=== PATIENT | female | born 1965 | race Caucasian/White ===

== ENCOUNTER → 2016-12-24 | Outpatient (CLI) | payer BC ==
--- NOTE | 2016-12-24 08:15 | MR ---
EXAMINATION TYPE: MR brain wo con DATE OF EXAM: 12/24/2016 7:20 AM COMPARISON: NONE HISTORY: 51-year-old female with headaches, right eye mass TECHNIQUE: Multiplanar, multisequence images of the brain and brainstem were acquired without IV con trast. Diffusion weighted imaging is performed. FINDINGS: No evidence for acute infarction, hemorrhage, mass, mass effect, midline shift, herniation, effacemen t of basal cisterns, or extra-axial fluid collection. The ventricles and sulci are age-appropriate. Major intracranial flow voids are intact. T2/FLAIR weighted sequences show no white matter signal abnormality. Midline structures demonstrate normal morphology. The craniocervical junction is normal. Mild mucosal thickening ethmoid air cells and maxillary sinuses. Globes are intact. The bilateral lac rimal glands are visualized. IMPRESSION: No intracranial abnormality seen. There is mild chronic maxillary and ethmoid sinus disease.
== END ==
LOC: RADMRIMAIN 06:36
PROVIDERS: ATTEND Family Medicine
DX: J32.8 Other chronic sinusitis (principal)
CPT/HCPCS: 70551

== ENCOUNTER 2017-01-31 08:11 | Day surgery (SDC) | payer BC ==
[~2017-01-31 08:11] MED LIST: ACETAMINOPHEN TAB 500 MG TAB PO ONE; CLINDAMYCIN 600 MG in DEXTROSE 5% IN WATER 50 ML IVPB ONE; DEXAMETHASONE SOD PHOSPHATE 10 MG/ML 1 ML VIAL IV ONE; DEXAMETHASONE SOD PHOSPHATE 4 MG/ML 1 ML VIAL IV ONE; FAMOTIDINE 20 MG/2 ML VIAL IV ONE; HYDROmorphone 1 MG/ML 1 ML SYRINGE IVP PRN; LACTATED RINGERS 1,000 ML IV SCH; MIDAZOLAM 2 MG/2 ML VIAL IV PRN; ONDANSETRON 4 MG/2 ML VIAL IVP ONE
[2017-01-31] MEDS: OXYMETAZOLINE 0.05% NASL SPRAY 15 ML NASAL ONE ×5 (08:40→09:08)
[2017-01-31] MEDS ORDERED: LIDOCAINE 1% 20 ML VIAL (10MG/ML) FOR IV START INTRADERMA ONE (08:55)
[2017-01-31 09:13] LABS: Glucose,Whole Blood 129 mg/dL (75-99)
[2017-01-31] MEDS ORDERED: SCOPOLAMINE 1.5MG/72HR PATCH TRANSDERM ONE (09:13)
[2017-01-31] MEDS ORDERED: SUCCINYLCHOLINE CHLORIDE 100 MG/5 ML SYR IV ONE (09:58)
[2017-01-31] MEDS ORDERED: ONDANSETRON 4 MG/2 ML VIAL ONE (09:58)
[2017-01-31] MEDS ORDERED: DEXAMETHASONE SOD PHOS (MDV) 100 MG/10 ML VIAL ONE (09:58)
[2017-01-31] MEDS ORDERED: PROPOFOL 10 MG/ML 20 ML VIAL IV ONE (09:58)
[2017-01-31] MEDS ORDERED: MIDAZOLAM 2 MG/2 ML VIAL ONE (09:58)
[2017-01-31] MEDS ORDERED: fentaNYL (PF) 50 MCG/ML 2 ML AMP ONE (09:58)
[2017-01-31] MEDS ORDERED: BUPIVACAIN-EPI 0.5%-1:200,000 30 ML VIAL SQ ONE (10:26)
[2017-01-31] MEDS ORDERED: LIDOCAINE 1%-EPI 1:100,000 20 ML VIAL SUBMUCOSAL ONE (10:26)
[2017-01-31] MEDS ORDERED: EPINEPHrine 1 MG/ML 1 ML AMP IRRIGATION ONE (10:27)
[2017-01-31] MEDS ORDERED: BUPIVACAINE (PF) 0.25% 30 ML VIAL SQ ONE (10:28)
[2017-01-31] MEDS ORDERED: FLUORESCEIN STRIPS 1 MG STRIP MISCELLANE ONE (10:28)
[2017-01-31] MEDS ORDERED: SILVER NITRATE APPLICATOR 1 EACH STICK..EA. TOPICAL ONE (10:31)
[2017-01-31] MEDS ORDERED: BACITRACIN 500 UNIT/GM OINT 28.4 GM TUBE TOPICAL ONE (10:52)
[2017-01-31] MEDS ORDERED: EPINEPHrine 1 MG/ML (MDV) 30 ML VIAL IRRIGATION ONE (10:53)
[2017-01-31] MEDS ORDERED: LACTATED RINGERS 1,000 ML IV ONE (11:29)
[2017-01-31 11:40] VITALS: TEMP 97.6
--- NOTE | 2017-01-31 11:52 | P.OP ---
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 She has had recurring sinusitis spray frequently for many years she also gets headaches facial pain and pressure. She has constant discolored drainage has anosmia. Her drainage is discolored she has a chronic left nasal obstruction his sense of smell is diminished. Again she is very frequent sinus infections in addition she gets frequent strep throats 3-4 per year for many years. She has sleep apnea cannot tolerate the mask because of her nasal obstructive issues a large tonsils and adenoids. Also been having problems with recurring epistaxis on the left side. Has failed medical therapy. Operative Findings: Patient was found have a left septal deviation large obstructive inferior turbinates and rafy pus coming from the ostomy complexes bilaterally friable left anterior lip vessels were noted on the septum. Patient had large cryptic tonsils and adenoids. Description of Procedure: Preoperatively the patient had her consent reviewed. All risks, benefits, and alternative therapies were discussed and all questions were answered. The patient was informed of the procedure and a confirmatory fashion and was in agreement to proceed forward. In the operating room a timeout was performed and all issues were reviewed with the operating room staff. The patient underwent a general inhalation anesthetic and intubated by the department of anesthesia and also monitored throughout the entire case by the department of anesthesia. A functioning IV line was in place. The patient was positioned in the supine position with slight reverse Trendelenburg. Preoperatively she had Afrin nasal spray. We then injected the septum, lateral nasal wall, turbinates with lidocaine 1% with epinephrine 1 100, 000. Approximately 10 minutes were allowed wait for full vasoconstrictive effects to take place. The left anterior septum to some friability and silver nitrate cautery was utilized to cauterize this area. A caudal incision was made over the caudal portion of the left septum down to the mucoperichondrium. A mucoperichondrial flap was developed with use of tunnels inferiorly and superiorly. We identified the deviation and with use of crosshatching incisions and removal of some redundant strips of septal cartilage , the septum was placed back in the midline in excellent position relieving this patient of this deviated nasal septum. We closed the incision with a 40 rapid Vicryl and a quilting stitch was used to reapproximate the septal flap. The septum was corrected and a swing door type fashion. The septum was sutured fixated to the vomer area and groove with use of a 40 rapid Vicryl. attention was then paid to the inferior turbinates. The bilateral inferior turbinates were hypertrophic and obstructive. We entered the anterior portion of the inferior turbinates with use of a microdebrider. We remove bone and submucosal elements with use of a microdebrider bilaterally. The inferior turbinates underwent a submucosal resection with removal of submucosal tissue and bone. We obtained a much better and normal in size for breathing. The inferior turbinates were then outfractured and compressed with a Dealstruck nasal elevator. Excellent airway was obtained and was symmetric bilaterally. No bleeding was encountered. Attention was then paid to the middle turbinates which were brought medial. The uncinate process was visualized and reflected forward with a Che probe. With the use of an endoscope utilizing 0 30 and 90 we perform this procedure and utilize this endoscope on a video camera throughout the entire procedure. This was with use of a Delgado sunshine scope. We then took down the uncinate process with a pediatric backbiter and a microdebrider. After the uncinate process was removed the maxillary sinuses were opened widely with use of a straight boss. We open the maxillary sinuses widely and into the maxillary sinuses with endoscopic visualization. Diseased tissue was removed from the maxillary sinuses bilaterally and the sinuses were opened bilaterally. After the maxillary sinuses were opened and diseased tissue was removed attention was then paid to the ethmoid bulla. From a medial to lateral position we took down the ethmoid bulla. We identified the roof of the maxillary sinus and the inferior attachment of the superior turbinate and then took down the basal lamella and into the posterior ethmoid air cells. We did a total ethmoidectomy with use of an up-biting boss. Excellent results were obtained. Diseased tissue was found in the ethmoid sinuses and removed. 0 gel was inserted Excellent hemostasis was obtained throughout the entire case and very low blood loss was noted. The skull base and orbital busby looked good. We reinspected the sinonasal region and no bleeding was encountered. A McIvor mouth gag was placed into the patients mouth with care to avoid any trauma to the lips, teeth, gums or tongue. Mouth was opened and tongue was depressed. The tonsils were grasped with an Allis forceps and brought medially bilaterally. A subcapsular dissection was performed utilizing an Evac-70 handpiece with an Arthrotec setting of 7. The tonsils were removed without incident bilaterally and the tonsillar fossae were inspected and bleeding was nonexistent and stopped spontaneously with Coblation. A Marcaine and lidocaine mixture was injected into the peritonsillar area for anesthesia postoperatively. After the tonsillar fossae were reinspected and no bleeding was seen attention was then paid to the nasopharynx where a red rubber catheter was placed into the nose and out the mouth and used to retract the soft palate. With use of indirect mirror examination and the Coblation hand wand, the adenoid tissue was removed in that fashion again utilizing an Evac-70 handpiece with Arthrotec setting of 7. The adenoid tissues were removed and fulgurated. The patient tolerated this procedure well. The nasopharynx shows no signs of any bleeding. McIvor mouth gag and the red rubber catheter were removed. The stomach was suctioned and the patient was taken to postanesthesia recovery in excellent condition having tolerated this procedure well. The patient will follow up in the office in one week as scheduled.
[2017-01-31] MEDS ORDERED: MEPERIDINE 50 MG/ML SYRINGE IVP ONE (11:59)
[2017-01-31] MEDS ORDERED: HYDROcodone/APAP 5-325MG 1 EACH TAB PO ONE (13:09)
[2017-01-31 13:14] VITALS: RESP 18
[2017-01-31] MEDS ORDERED: diphenhydrAMINE 50 MG/ML 1 ML VIAL IVP ONE (14:34)
[2017-01-31 16:23] VITALS: BP 122/74; PULSE 72
== END 2017-01-31 17:30 | disposition home or self-care (01) ==
LOC: OR 08:11
PROVIDERS: ATTEND Otolaryngology
DX: J34.2 Deviated nasal septum (principal); J32.0 Chronic maxillary sinusitis; J32.2 Chronic ethmoidal sinusitis; J34.3 Hypertrophy of nasal turbinates; R04.0 Epistaxis; J35.03 Chronic tonsillitis and adenoiditis; J03.90 Acute tonsillitis, unspecified; J34.89 Other specified disorders of nose and nasal sinuses; G47.33 Obstructive sleep apnea (adult) (pediatric); J45.909 Unspecified asthma, uncomplicated; G43.909 Migraine, unspecified, not intractable, without status migrainosus; J30.9 Allergic rhinitis, unspecified; J35.01 Chronic tonsillitis; M47.812 Spondylosis without myelopathy or radiculopathy, cervical region; Z79.1 Long term (current) use of non-steroidal anti-inflammatories (NSAID); Z79.891 Long term (current) use of opiate analgesic; Z79.51 Long term (current) use of inhaled steroids; Z79.52 Long term (current) use of systemic steroids; Z79.899 Other long term (current) drug therapy; Z91.09 Other allergy status, other than to drugs and biological substances; Z88.1 Allergy status to other antibiotic agents; Z88.5 Allergy status to narcotic agent; Z88.0 Allergy status to penicillin; Z88.8 Allergy status to other drugs, medicaments and biological substances; Z91.040 Latex allergy status
CPT/HCPCS: 30520; 30140; 31267; 31255; 42821; 30901; 96374; 99285; 88304; 88305; 88300; J0171; J2250; J1200; J1100 ×2; J2175; J2405; J3010; J0330; J2704; 71020; 94640

== ENCOUNTER 2017-01-31 23:42 | Emergency (ER) | payer BC ==
[2017-02-01] MEDS ORDERED: DEXAMETHASONE SOD PHOSPHATE 10 MG/ML 1 ML VIAL IV STA
--- NOTE | 2017-02-01 00:16 | ED ---
General Adult HPI - General Source: patient, RN notes reviewed Mode of arrival: wheelchair Limitations: no limitations <Low Nolen - Last Filed: 02/01/17 02:29> <Robbin Montano - Last Filed: 02/01/17 07:21> - General Chief complaint: ENT Stated complaint: Post Op-CHRISTINA Time Seen by Provider: 01/31/17 23:50 - History of Present Illness Initial comments: Patient's a 51-year-old female status post tonsillectomy times one day, who presents emergency room today with a chief complaint of difficulty breathing. She states she feels like her throat is closing on her. She states she was trying to go to bed tonight started having increased difficulty breathing. Patient does admit that she is able swallow without any difficulty. Patient does admit that she used her rescue inhaler. She currently denies any other complaints or symptoms at this time. She is able to speak in full sentences. Patient denies any recent fever, chills, chest pain, back pain, abdominal pain, nausea or vomiting, numbness or tingling, dysuria or hematuria, constipation or diarrhea, headaches or visual changes, or any other complaints. (Low Nolen) - Related Data Home Medications Medication Instructions Recorded Confirmed Montelukast [Singulair] 10 mg PO QAM 01/28/17 01/31/17 Previous Rx's Medication Instructions Recorded Hydrocodone/Acetaminophen [[place] 1 - 2 each PO Q6HR PRN #50 tab 01/31/17 5-325] Levofloxacin [Levaquin] 500 mg PO DAILY #10 tab 01/31/17 predniSONE 20 mg PO DIRECTED #15 tab 01/31/17 Lidocaine Viscous 2% [Xylocaine 15 ml MUCOUS MEM TID 5 Days 02/01/17 Viscous] Allergies Allergy/AdvReac Type Severity Reaction Status Date / Time erythromycin base Allergy Unknown Verified 01/31/17 23:46 latex Allergy Rash/Hives Verified 01/31/17 23:46 Penicillins Allergy Unknown Verified 01/31/17 23:46 tetracycline Allergy Unknown Verified 01/31/17 23:46 coconut AdvReac Nausea & Verified 01/31/17 23:46 Vomiting hydromorphone HCl AdvReac Hallucinati Verified 01/31/17 23:46 [From Dilaudid] ons iron AdvReac Unknown Verified 01/31/17 23:46 morphine AdvReac Hallucinati Verified 01/31/17 23:46 ons Review of Systems ROS Other: All systems not noted in ROS Statement are negative. <Low oNlen - Last Filed: 02/01/17 02:29> ROS Other: All systems not noted in ROS Statement are negative. <CharmaineRobbin - Last Filed: 02/01/17 07:21> ROS Statement: Those systems with pertinent positive or pertinent negative responses have been documented in the HPI. 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 Hx of and current issue with eczema. History of Any Multi-Drug Resistant Organisms: None Reported Past Surgical History: Appendectomy, Hysterectomy, Tubal Ligation Additional Past Surgical History / Comment(s): Partial Hysterectomy, Colonoscopy. Past Anesthesia/Blood Transfusion Reactions: No Reported Reaction Additional Past Anesthesia/Blood Transfusion Reaction / Comment(s): Pt states she does not need much anesthesia, she reacts to it very easily. Past Psychological History: Anxiety Smoking Status: Never smoker Past Alcohol Use History: Rare Past Drug Use History: None Reported - Past Family History Mother Additional Family Medical History / Comment(s): TB Sister(s) Family Medical History: Cancer <CallumLow - Last Filed: 02/01/17 02:29> General Exam Limitations: no limitations <Low Nolen - Last Filed: 02/01/17 02:29> <CharmaineRobbin - Last Filed: 02/01/17 07:21> - General Exam Comments Initial Comments: General: The patient is awake and alert, in no distress, and does not appear acutely ill. Eye: Pupils are equal, round and reactive to light, extra-ocular movements are intact. No nystagmus. There is normal conjunctiva bilaterally. No signs of icterus. Ears, nose, mouth and throat: There are moist mucous membranes and no oral lesions. Neck: The neck is supple, there is no tenderness or JVD. Cardiovascular: There is a regular rate and rhythm. No murmur, rub or gallop is appreciated. Respiratory: Lungs are clear to auscultation, respirations are non-labored, breath sounds are equal. No wheezes, stridor, rales, or rhonchi. Gastrointestinal: Soft, non-distended, non-tender abdomen without masses or organomegaly noted. There is no rebound or guarding present. No CVA tenderness. Bowel sounds are unremarkable. Musculoskeletal: Normal ROM, no tenderness. Strength 5/5. Sensation intact. Pulses equal bilaterally 2+. Neurological: A&O x 3. CN II-XII intact, There are no obvious motor or sensory deficits. Coordination appears grossly intact. Speech is normal. Skin: Skin is warm and dry and no rashes or lesions are noted. Psychiatric: Cooperative, appropriate mood & affect, normal judgment. (Low Nolen) Medical Decision Making <Low Nolen - Last Filed: 02/01/17 02:29> <Robbin Montano - Last Filed: 02/01/17 07:21> - Medical Decision Making X-ray reviewed and shows poor inspiratory effort. Case was discussed and seen patient at bedside Dr. Montano. Patient given viscous lidocaine and does have improvement of her symptoms. She states she feels much better at this time and feels comfortable being discharged home. She admits there was some improvement after breathing treatment but viscous lidocaine has helped her greatly. She'll be discharged home given a prescription for viscous lidocaine advised to contact Dr. Ac in the morning. Advised to return here to the emergency room for any other concerns. (Low Nolen) I saw this patient in conjunction with the physician recycling assistant. I performed independent history and physical exam. Agree with case management. (Robbin Montano) Disposition Time of Disposition: 02:30 <Low Nolen - Last Filed: 02/01/17 02:29> <Robbin Montano - Last Filed: 02/01/17 07:21> Clinical Impression: Post-tonsillectomy pain Disposition: HOME SELF-CARE Condition: Good Instructions: *Surgery [facility] - ( ENT) Tonsillectomy/Adenoidectomy Post-Op Instructions Additional Instructions: Please follow-up with Dr. Ac in the morning as discussed. Please return here to the emergency room if any symptoms increase or worsen or for any other concerns. Prescriptions: Lidocaine Viscous 2% [Xylocaine Viscous] 15 ml MUCOUS MEM TID 5 Days Referrals: Héctor Rodriguez MD [Primary Care Provider] - 1-2 days Gabino Avalos DO [Doctor of Osteopathic Medicine] - 1-2 days
[2017-02-01] MEDS ORDERED: IPRATROPIUM-ALBUTEROL 3 ML NEB INHALATION STA (00:46)
--- NOTE | 2017-02-01 01:43 | XR ---
PROCEDURE: FILM CXR 2 VIEWS HISTORY: 51-year-old female with cough. COMPARISON: Chest radiograph from abdominal series 05/19/2016 TECHNIQUE: Frontal and lateral views of the chest were obtained. FINDINGS: Stable cardiomediastinal silhouette. Low lung volumes. Increased density in the bilateral lung bases, left greater than right, may be due to pneumonia or volume loss. Bones are unremarkable for age. IMPRESSION: Increased density in the bilateral lung bases, left greater than right, may be due to pneumonia or volume loss.
[2017-02-01] MEDS ORDERED: LIDOCAINE VISCOUS 300 MG/15 ML CUP MUCOUS MEM ONE (02:03)
[2017-02-01 02:40] VITALS: BP 136/70; PULSE 82; RESP 18; TEMP 97.5
== END 2017-02-01 02:41 | disposition home or self-care (01) ==
LOC: EC 23:42
DX: R07.0 Pain in throat (principal); G89.18 Other acute postprocedural pain; J45.909 Unspecified asthma, uncomplicated; Z79.899 Other long term (current) drug therapy; Z88.0 Allergy status to penicillin; Z88.1 Allergy status to other antibiotic agents; Z88.5 Allergy status to narcotic agent; Z88.8 Allergy status to other drugs, medicaments and biological substances; Z91.040 Latex allergy status; Z91.018 Allergy to other foods; Z90.89 Acquired absence of other organs; Y83.6 Removal of other organ (partial) (total) as the cause of abnormal reaction of the patient, or of later complication, without mention of misadventure at the time of the procedure
CPT/HCPCS: 94640; 71020; 99285; 96374; J1100

== ENCOUNTER 2017-02-01 21:32 | Observation (INO) | payer BC ==
[2017-02-01] MEDS ORDERED: ALBUTEROL NEBULIZED 2.5 MG/3 ML INHALATION STA (21:46)
[2017-02-01] MEDS ORDERED: LIDOCAINE VISCOUS 2% 15 ML CUP MUCOUS MEM STA (21:46)
--- NOTE | 2017-02-01 21:59 | ED ---
SOB HPI - General Chief Complaint: Shortness of Breath Stated Complaint: SOB Time Seen by Provider: 02/01/17 21:46 Source: family Mode of arrival: ambulatory Limitations: no limitations - History of Present Illness Initial Comments: This patient is a 51-year-old woman who had recent tonsillectomy and nasal septum surgery with Dr. Ac. She presents tonight with the acute onset about 20-25 minutes ago of some pharyngeal pain and also feeling like she couldn't breathe. The patient points to her throat area and states that she is having pain there. MD Complaint: shortness of breath Onset/Timin -: minutes(s) Consistency: constant Improves With: nothing - Related Data Home Medications Medication Instructions Recorded Confirmed Montelukast [Singulair] 10 mg PO QAM 01/28/17 02/02/17 Acetaminophen-Codeine 300-30mg 1 tab PO Q6H PRN 02/01/17 02/02/17 [Tylenol #3] Hydrocodone/Acetaminophen [[place] 1 - 2 tab PO Q6HR PRN 02/01/17 02/02/17 5-325] predniSONE See Taper PO DAILY 02/01/17 02/02/17 Previous Rx's Medication Instructions Recorded Levofloxacin [Levaquin] 500 mg PO DAILY #10 tab 01/31/17 Lidocaine Viscous 2% [Xylocaine 15 ml MUCOUS MEM TID 5 Days 02/01/17 Viscous] Allergies Allergy/AdvReac Type Severity Reaction Status Date / Time erythromycin base Allergy Unknown Verified 02/02/17 03:18 latex Allergy Rash/Hives Verified 02/02/17 03:18 Penicillins Allergy Unknown Verified 02/02/17 03:18 tetracycline Allergy Unknown Verified 02/02/17 03:18 coconut AdvReac Nausea & Verified 02/02/17 03:18 Vomiting hydromorphone HCl AdvReac Hallucinati Verified 02/02/17 03:18 [From Dilaudid] ons iron AdvReac Unknown Verified 02/02/17 03:18 morphine AdvReac Hallucinati Verified 02/02/17 03:18 ons Review of Systems ROS Statement: Those systems with pertinent positive or pertinent negative responses have been documented in the HPI. ROS Other: All systems not noted in ROS Statement are negative. Constitutional: Denies: fever, chills ENT: Reports: throat pain Respiratory: Reports: dyspnea, stridor. 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 Hx of and current issue with eczema. History of Any Multi-Drug Resistant Organisms: None Reported Past Surgical History: Adenoidectomy, Appendectomy, Hysterectomy, Tonsillectomy , Tubal Ligation Additional Past Surgical History / Comment(s): Partial Hysterectomy, Colonoscopy , polyps removed. Past Anesthesia/Blood Transfusion Reactions: No Reported Reaction Additional Past Anesthesia/Blood Transfusion Reaction / Comment(s): Pt states she does not need much anesthesia, she reacts to it very easily. Past Psychological History: Anxiety Smoking Status: Never smoker Past Alcohol Use History: Rare Past Drug Use History: None Reported - Past Family History Mother Additional Family Medical History / Comment(s): TB Sister(s) Family Medical History: Cancer General Exam Limitations: no limitations General appearance: alert, in no apparent distress Head exam: Present: atraumatic, normocephalic Eye exam: Present: normal appearance. Absent: scleral icterus, conjunctival injection ENT exam: Present: other (There is granulation tissue with normal postoperative appearance post tonsillectomy. The uvula is midline without significant edema.) Neck exam: Present: normal inspection, full ROM Respiratory exam: Present: stridor, other. Absent: respiratory distress, wheezes, rales, rhonchi Cardiovascular Exam: Present: regular rate, normal rhythm, normal heart sounds. Absent: systolic murmur, diastolic murmur, rubs, gallop GI/Abdominal exam: Present: soft. Absent: distended, tenderness, guarding, rebound, mass Neurological exam: Present: alert Skin exam: Present: warm, dry, intact, normal color. Absent: rash Course Vital Signs 02/01/17 02/01/17 02/01/17 21:38 21:50 21:58 Temperature 98.7 F Pulse Rate 100 100 Respiratory 24 24 Rate Blood Pressure 150/87 O2 Sat by Pulse 93 L Oximetry 02/01/17 02/01/17 02/02/17 22:09 22:10 00:17 Temperature Pulse Rate 100 100 104 H Respiratory 22 24 Rate Blood Pressure 135/81 156/71 O2 Sat by Pulse 95 96 Oximetry 02/02/17 02/02/17 02/02/17 00:31 00:37 01:20 Temperature Pulse Rate 106 H 108 H 102 H Respiratory 24 Rate Blood Pressure 148/74 O2 Sat by Pulse 99 Oximetry 02/02/17 02:38 Temperature 98.0 F Pulse Rate 85 Respiratory 20 Rate Blood Pressure 141/78 O2 Sat by Pulse 96 Oximetry Medical Decision Making - Lab Data Result diagrams: 02/02/17 00:32 02/02/17 00:32 Lab Results 02/02/17 02/02/17 Range/Units 00:32 00:32 WBC 15.4 H (3.8-10.6) k/uL RBC 5.30 (3.80-5.40) m/uL Hgb 16.0 (11.4-16.0) gm/dL Hct 48.3 H (34.0-46.0) % MCV 91.1 (80.0-100.0) fL MCH 30.2 (25.0-35.0) pg MCHC 33.2 (31.0-37.0) g/dL RDW 13.4 (11.5-15.5) % Plt Count 289 (150-450) k/uL Neutrophils % 83 % Lymphocytes % 8 % Monocytes % 7 % Eosinophils % 1 % Basophils % 1 % Neutrophils # 12.8 H (1.3-7.7) k/uL Lymphocytes # 1.2 (1.0-4.8) k/uL Monocytes # 1.0 (0-1.0) k/uL Eosinophils # 0.1 (0-0.7) k/uL Basophils # 0.1 (0-0.2) k/uL Sodium 140 (137-145) mmol/L Potassium 3.6 (3.5-5.1) mmol/L Chloride 103 (98-107) mmol/L Carbon Dioxide 28 (22-30) mmol/L Anion Gap 9 mmol/L BUN 20 H (7-17) mg/dL Creatinine 0.80 (0.52-1.04) mg/dL Est GFR (MDRD) Af Amer >60 (>60 ml/min/1.73 sqM) Est GFR (MDRD) Non-Af >60 (>60 ml/min/1.73 sqM) Glucose 121 H (74-99) mg/dL Calcium 9.4 (8.4-10.2) mg/dL Disposition Clinical Impression: Post-tonsillectomy pain Disposition: ADMITTED IP TO THIS HOSP Condition: Fair
--- NOTE | 2017-02-01 22:52 | XR ---
EXAM: XR Soft Tissue Neck. CLINICAL HISTORY: Reason: Pain TECHNIQUE: Frontal and lateral views of the soft tissues of the neck. COMPARISON: No relevant prior studies available. FINDINGS: There is mild prevertebral soft tissue thickening, up to 7 mm at the C2 level. Cannot exclude retropharyngeal fluid/abscess. No epiglottic swelling. No radiopaque foreign body. Disc degeneration at lower cervical levels. IMPRESSION: Mild prevertebral soft tissue thickening. Cannot exclude small amount of retropharyngeal fluid. No epiglottic swelling.
[2017-02-02] MEDS ORDERED: ALBUTEROL NEBULIZED 2.5 MG/3 ML INHALATION STA (00:13)
[2017-02-02] MEDS ORDERED: LIDOCAINE VISCOUS 300 MG/15 ML CUP MUCOUS MEM STA (00:13)
[2017-02-02] MEDS ORDERED: methylPREDNISolone SOD SUCCI 125 MG/2 ML VIAL IV STA (00:15)
[2017-02-02] MEDS ORDERED: RX INFO: IV CONTRAST WAS GIVEN 1 EACH MISC MISCELLANE PRN (00:27)
[2017-02-02 00:38] LABS: Basophils # (A) 0.1 k/uL (0-0.2); Basophils % (A) 1 %; CH 30.9; CHCM 34.1; Eosinophils # (A) 0.1 k/uL (0-0.7); Eosinophils % (A) 1 %; HCT 48.3 % (34.0-46.0); HDW 2.31; Luc # (Auto) 0.25; Luc % (Auto) 2; Lymphocytes # (A) 1.2 k/uL (1.0-4.8); Lymphocytes % (A) 8 %; MCH 30.2 pg (25.0-35.0); MCHC 33.2 g/dL (31.0-37.0); MCV 91.1 fL (80.0-100.0); Monocytes % (A) 7 %; Neutrophils # (A) 12.8 k/uL (1.3-7.7); Neutrophils % (A) 83 %; RDW 13.4 % (11.5-15.5); WBC 15.4 k/uL (3.8-10.6); WBC (Perox) 14.81
[2017-02-02 00:49] LABS: Anion Gap 9 mmol/L; Blood Urea Nitrogen 20 mg/dL (7-17); Calcium 9.4 mg/dL (8.4-10.2); Carbon Dioxide 28 mmol/L (22-30); Chloride 103 mmol/L (98-107); Glucose 121 mg/dL (74-99); Non-African American GFR(MDRD) >60 (>60 ml/min/1.73 sqM); Potassium 3.6 mmol/L (3.5-5.1); Sodium 140 mmol/L (137-145)
--- NOTE | 2017-02-02 01:48 | CT ---
EXAM: CT Neck With Intravenous Contrast CLINICAL HISTORY: Reason: Pain TECHNIQUE: Axial computed tomography images of the neck with intravenous contrast. CTDI is 26.4 mGy and DLP is 827.9 mGy-cm This CT exam was performed using one or more of the following dose reduction techniques: automated exposure control, adjustment of the mA and/or kV according to patient size, and/or use of iterative reconstruction technique. Coronal and sagittal reformatted images were created and reviewed. COMPARISON: Neck Radiograph dated 02/01/17 FINDINGS: Artifacts: Significant motion artifact. Nasopharynx: Unremarkable. Oropharynx: Unremarkable. No significant tonsillar enlargement. No peritonsillar abscess. Hypopharynx: Unremarkable. Larynx: Unremarkable. Normal epiglottis. Trachea: Unremarkable. Retropharyngeal space: The prevertebral fullness seen on radiograph appears to be correspond to prominent retropharyngeal fat. Submandibular/parotid glands: Unremarkable. Glands are normal in size. Thyroid: Unremarkable. No enlarged or calcified nodules. Bones/joints: Multilevel degenerative changes of the cervical spine with a prominent disc osteophyte complex seen at C5/C6. Soft tissues: Unremarkable. Vasculature: No acute findings. Lymph nodes: Unremarkable. No lymphadenopathy. Lung apices: Question focus of ground-glass opacity within the right lower lobe not well evaluated due to motion. IMPRESSION: Significant motion artifact. 1. The prevertebral fullness seen on radiograph appears to be correspond to prominent retropharyngeal fat. 2. Question focus of ground-glass opacity within the right lower lobe not well evaluated due to motion. 3. Multilevel degenerative changes of the cervical spine with a prominent disc osteophyte complex seen at C5/C6.
[2017-02-02] MEDS ORDERED: HYDROcodone/APAP 5-325MG 1 EACH TAB PO PRN (01:53)
[2017-02-02] MEDS ORDERED: ACETAMINOPHEN TAB 325 MG TAB PO PRN (01:53)
[2017-02-02] MEDS ORDERED: NALOXONE 0.4 MG/ML 1 ML VIAL IV PRN (01:53)
[2017-02-02] MEDS: SODIUM CHLORIDE 0.9% 1,000 ML IV SCH ×3 (02:39→20:22)
[2017-02-02] MEDS: LORazepam 2 MG/ML SYRINGE IV PRN ×3 (03:06→20:26)
[2017-02-02 04:02] VITALS: BMI 36.6
[2017-02-02] MEDS ORDERED: LEVOFLOXACIN 500MG-D5W PMX 500 MG in DEXTROSE/WATER 1 100ML.BAG IVPB SCH (09:00)
[2017-02-02] MEDS ORDERED: PANTOPRAZOLE 40 MG/10 ML VIAL IV SCH (09:00)
--- NOTE | 2017-02-02 09:26 | HP ---
DATE OF ADMISSION: 02/02/2017 REASON FOR ADMISSION: Shortness of breath. HISTORY: This is a 51-year-old white female who on 01/31/17 underwent septoplasty and inferior turbinoplasty, bilateral endoscopic sinus surgery, adenotonsillectomy by Dr. Avalos. She was doing reasonably well initially, but then last evening. She had healing of some throat swelling and felt some difficulties breathing. She came to the ER and was evaluated. Dr. Fletcher did not note any airway obstruction and noted the patient had some intermittent stridor, but nothing on a regular basis. Soft tissue x-ray showed some possible prevertebral swelling and CT scan did not show any airway compromise abscess or abnormal masses. Patient did sleep overnight. Note that she was observed sleeping when I entered the room with quiet breathing. Once she awoke she had some minimal inspiratory noise, but no actual respiratory distress. Her oxygen saturations have been good as well as the remainder of the vital signs. She does complain of a sore throat and some nasal airway obstruction both essentially as expected from her surgery site. She does feel the pain is well controlled presently. PAST MEDICAL HISTORY: Positive for acid reflux, allergies, anemia, asthma, migraine headaches, sleep apnea. PAST SURGICAL HISTORY: Appendectomy and hysterectomy. ALLERGIES: LATEX, MORPHINE AND PENICILLIN. FAMILY HISTORY: Noncontributory. SOCIAL HISTORY: Does drink alcohol on occasion. No tobacco use. MEDICATIONS: At home: 1. Singulair. 2. [place]. 3. Prednisone. 4. She is also on prophylactic antibiotics but is not sure which one. Review of systems is negative other than as above. She has had no fever or chills. PHYSICAL EXAM: Again vital signs are stable. GENERAL: This is a well-developed white female in no acute distress. She can speak with normal voice. HEENT: Head normocephalic and atraumatic. Ears bilateral canals clear. Tympanic membranes unremarkable and mobile. Nose shows minimal old blood which was suctioned. Nasal septal splints intact. No hematoma. No active bleeding or purulence. Mouth and throat show status post tonsillectomy with the usual healing exudate in the tonsillar fossa bilaterally with mild uvular edema. However, excellent oropharyngeal airway. Hypopharynx and larynx exam with a mirror exam shows no ( ) epiglottis is well visualized. Vocal cords unremarkable and mobile. Neck is supple without adenopathy or tenderness. Lungs clear to auscultation bilaterally. HEART: Regular rate and rhythm without murmur or gallop appreciated. Extremities no gross deformities. NEUROLOGIC: Grossly intact. ASSESSMENT: Postoperative pain and oropharyngeal swelling. PLAN: The patient was admitted currently on supportive medications including hydrocodone, lorazepam as needed and Protonix. We will also add IV steroids and prophylactic antibiotics. We will continue IV fluids. She is encouraged to drink oral fluids, which will help dryness in the throat. Disposition will be dependent on her progress. It does not appear to have any significant airway obstruction.
[2017-02-02] MEDS: DEXAMETHASONE SOD PHOSPHATE 4 MG/ML 1 ML VIAL IV SCH ×3 (12:21→23:09)
[2017-02-03] MEDS: SODIUM CHLORIDE 0.9% 1,000 ML IV SCH (03:24)
[2017-02-03] MEDS: DEXAMETHASONE SOD PHOSPHATE 4 MG/ML 1 ML VIAL IV SCH (05:55)
[2017-02-03 07:59] VITALS: BP 125/83; PULSE 76; RESP 16; TEMP 96.8
--- NOTE | 2017-02-03 10:00 | DS ---
DATE OF ADMISSION: 02/02/2017 DATE OF DISCHARGE: 02/03/2017 DISCHARGE DISPOSITION: To home and improved. HISTORY: This is a 51-year-old white female who on 01/31/17 underwent septoplasty, inferior turbinoplasty, endoscopic sinus surgery and adenotonsillectomy by Dr. Avalos. She felt some swelling of the throat and therefore felt as though she was having some difficulty with breathing and came to the ER. She had soft tissue x-rays and CT scan of the neck, which ultimately did not show any particular airway compromise. The patient was not having any stridor or noisy breathing with sleeping, but then when she was awake she would have sometimes some inspiratory noise, but no actual respiratory distress and oxygen saturations were good. She was treated through her hospitalization with analgesics, anxiolytics, steroids, IV fluids and IV antibiotics and has improved quite nicely by today. She no longer has any noisy breathing and is tolerating fluids well. Her vital signs have been stable throughout. She this morning desired to go home. She has had no throat bleeding. She does have an appointment tomorrow with Dr. Avalos for nasoseptal splint removal. PAST MEDICAL HISTORY: Positive for acid reflux, allergies, anemia, asthma, migraine headaches, sleep apnea. PAST SURGICAL HISTORY: As above as well as appendectomy, hysterectomy. HOME MEDICATIONS: Singular, [place], prednisone, prophylactic antibiotic from postoperatively. PHYSICAL EXAM: Vital signs are stable and within normal limits. GENERAL: The patient is alert and awake and oriented x3. She is sitting up in bed this morning and looks quite comfortable. Voice is normal. No stridor. HEENT: Head normocephalic and atraumatic. EARS: Clear bilaterally. The nose shows nasal septal splints in place. There is some mild dried blood but splints are well visualized. No active bleeding. Mouth and throat show usual healing exudate in the tonsillar fossa and only slight uvula edema. Excellent oropharyngeal airway. NECK: Supple without adenopathy or tenderness. LUNGS: Clear to auscultation bilaterally The patient was admitted for postoperative pain, dehydration and swelling and has improved quite nicely mostly with the IV steroids. The patient will be discharged to home with continued postoperative instructions including nasal sinus surgery instructions and adenotonsillectomy instructions which she has already home. Liquid to soft diet. No crunchy foods. She does have [place], antibiotics and prednisone already at home, which she will continue. Follow-up tomorrow with Dr. Avalos as scheduled for nasoseptal splint removal. I would encourage her to be active up out of bed walking, but no strenuous activity. If she has any questions or concerns in the meantime she is to call.
== END 2017-02-03 08:58 | disposition home or self-care (01) ==
LOC: EC 21:32 → 3SUR 02-02 01:57
PROVIDERS: ADMIT Otolaryngology; ATTEND Otolaryngology
DX: E86.0 Dehydration (principal); G89.18 Other acute postprocedural pain; R06.02 Shortness of breath; K21.9 Gastro-esophageal reflux disease without esophagitis; G43.909 Migraine, unspecified, not intractable, without status migrainosus; G47.30 Sleep apnea, unspecified; J45.909 Unspecified asthma, uncomplicated; D68.9 Coagulation defect, unspecified; Z90.710 Acquired absence of both cervix and uterus; Z91.040 Latex allergy status; Z79.899 Other long term (current) drug therapy; Z88.5 Allergy status to narcotic agent; Z88.8 Allergy status to other drugs, medicaments and biological substances; Z88.0 Allergy status to penicillin; Z88.3 Allergy status to other anti-infective agents
CPT/HCPCS: 96374 ×2; 99285 ×2; 36415; 94640 ×2; 80048; 85025; 70360; 70491; G0378 ×2; J2060; J1100 ×2; J2930; J1956; Q9967; C9113; 96375; 96376

== ENCOUNTER 2019-08-06 13:38 | Emergency (ER) | payer BC ==
--- NOTE | 2019-08-06 14:05 | ED ---
General Adult HPI - General Chief complaint: Nausea/Vomiting/Diarrhea Stated complaint: NVD & dizziness Time Seen by Provider: 08/06/19 13:47 Source: patient, family Mode of arrival: ambulatory Limitations: no limitations - History of Present Illness Initial comments: Patient is a 53-year-old female with history of COPD and asthma is presenting to emergency Department with the multiple chief complaints. Patient reports she developed the sudden onset of general weakness, nausea, vomiting , cough, fever, rhinorrhea, sore throat, otalgia and headache. Patient reports uses albuterol inhaler daily however it is not improving her symptoms. Patient reports that she is wheezing and coughing with increased sputum production. Patient reports that she has been exposed to sick people. Patient denied getting the flu shot this year. Patient denies taking medication to alleviate the symptoms. - Related Data Home Medications Medication Instructions Recorded Confirmed Acetaminophen Tab [Tylenol Tab] 650 mg PO Q6H PRN 08/06/19 08/06/19 Ibuprofen [Advil] 200 mg PO Q6HR PRN 08/06/19 08/06/19 LORazepam [Ativan] 0.5 mg PO TID PRN 08/06/19 08/06/19 Mometasone/Formoterol [Dulera 200 2 puff INHALATION RT-Q6H PRN 08/06/19 08/06/19 Mcg/5 Mcg Inhaler] diphenhydrAMINE HCL [Benadryl] 25 mg PO BID PRN 08/06/19 08/06/19 Previous Rx's Medication Instructions Recorded Ondansetron Odt [Zofran Odt] 4 mg PO Q8HR PRN #10 tab 08/06/19 Oseltamivir [Tamiflu] 75 mg PO Q12HR #10 cap 08/06/19 methylPREDNISolone [Medrol Dose 4 mg PO DIRECTED #1 pack 08/06/19 Pack] Allergies Allergy/AdvReac Type Severity Reaction Status Date / Time erythromycin base Allergy Unknown Verified 08/06/19 13:55 latex Allergy Rash/Hives Verified 08/06/19 13:55 Penicillins Allergy Unknown Verified 08/06/19 13:55 tetracycline Allergy Unknown Verified 08/06/19 13:55 coconut AdvReac Nausea & Verified 08/06/19 13:55 Vomiting hydromorphone HCl AdvReac Hallucinati Verified 08/06/19 13:55 [From Dilaudid] ons iron AdvReac Unknown Verified 08/06/19 13:55 morphine AdvReac Hallucinati Verified 08/06/19 13:55 ons Review of Systems ROS Statement: Those systems with pertinent positive or pertinent negative responses have been documented in the HPI. ROS Other: All systems not noted in ROS Statement are negative. 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 Hx of and current issue with eczema. History of Any Multi-Drug Resistant Organisms: None Reported Past Surgical History: Adenoidectomy, Appendectomy, Hysterectomy, Tonsillectomy, Tubal Ligation Additional Past Surgical History / Comment(s): Partial Hysterectomy, Colonoscopy, polyps removed. Past Anesthesia/Blood Transfusion Reactions: No Reported Reaction Additional Past Anesthesia/Blood Transfusion Reaction / Comment(s): Pt states she does not need much anesthesia, she reacts to it very easily. Past Psychological History: Anxiety Smoking Status: Never smoker Past Alcohol Use History: Rare Past Drug Use History: None Reported - Past Family History Mother Additional Family Medical History / Comment(s): TB Sister(s) Family Medical History: Cancer General Exam Limitations: no limitations General appearance: alert, in no apparent distress Head exam: Present: atraumatic, normocephalic, normal inspection Eye exam: Present: normal appearance, PERRL, EOMI Pupils: Present: normal accommodation ENT exam: Present: normal exam, normal oropharynx (Clear bilateral rhinorrhea. No enlarged tonsils.), mucous membranes moist, TM's normal bilaterally, normal external ear exam Neck exam: Present: normal inspection, full ROM Respiratory exam: Present: wheezes (Bilateral) Cardiovascular Exam: Present: regular rate, normal rhythm, normal heart sounds Extremities exam: Present: normal inspection, full ROM Back exam: Present: normal inspection, full ROM Neurological exam: Present: alert, oriented X3 Psychiatric exam: Present: normal affect, normal mood Skin exam: Present: warm, intact, normal color Course Vital Signs 08/06/19 08/06/19 08/06/19 13:43 15:03 15:14 Temperature 98.1 F Pulse Rate 84 84 84 Respiratory 20 Rate Blood Pressure 155/97 O2 Sat by Pulse 94 L Oximetry 08/06/19 16:21 Temperature 98.2 F Pulse Rate 92 Respiratory 18 Rate Blood Pressure 127/87 O2 Sat by Pulse 97 Oximetry Medical Decision Making - Medical Decision Making Patient is a 53-year-old female with history of COPD and asthma is presenting to the emergency department with multiple chief complaints. Patient had developed the sudden onset of flu-type symptoms along with rhinorrhea, sore throat, nausea, headache, cough, otalgia and chills. On physical examination patient appears to be wheezing bilaterally. She was given a breathing treatment and fluids. On reevaluation patient reports her symptoms have improved all with resolution of wheezing. Patient given prednisone and Pepcid. Patient will be discharged with a Medrol Dosepak and Tamiflu. Strict return parameters were thoroughly discussed with patient was understanding and agreeable. Patient advised to drink lots of fluids and bedrest. The triage note says the patient had nausea vomiting diarrhea for 3 days, the patient reports her chief complaint was the sudden onset of flulike symptoms. Case discussed physician. - Lab Data Result diagrams: 08/06/19 14:00 08/06/19 14:00 Lab Results 08/06/19 08/06/19 08/06/19 Range/Units 14:00 14:00 14:00 WBC 4.4 (3.8-10.6) k/uL RBC 4.91 (3.80-5.40) m/uL Hgb 15.6 (11.4-16.0) gm/dL Hct 44.1 (34.0-46.0) % MCV 89.9 (80.0-100.0) fL MCH 31.7 (25.0-35.0) pg MCHC 35.3 (31.0-37.0) g/dL RDW 12.6 (11.5-15.5) % Plt Count 241 (150-450) k/uL Neutrophils % 53 % Lymphocytes % 31 % Monocytes % 8 % Eosinophils % 3 % Basophils % 1 % Neutrophils # 2.3 (1.3-7.7) k/uL Lymphocytes # 1.4 (1.0-4.8) k/uL Monocytes # 0.3 (0-1.0) k/uL Eosinophils # 0.2 (0-0.7) k/uL Basophils # 0.0 (0-0.2) k/uL Sodium 141 (137-145) mmol/L Potassium 3.8 (3.5-5.1) mmol/L Chloride 107 (98-107) mmol/L Carbon Dioxide 26 (22-30) mmol/L Anion Gap 8 mmol/L BUN 9 (7-17) mg/dL Creatinine 0.65 (0.52-1.04) mg/dL Est GFR (CKD-EPI)AfAm >90 (>60 ml/min/1.73 sqM) Est GFR (CKD-EPI)NonAf >90 (>60 ml/min/1.73 sqM) Glucose 114 H (74-99) mg/dL Calcium 9.3 (8.4-10.2) mg/dL Total Bilirubin 1.0 (0.2-1.3) mg/dL AST 39 H (14-36) U/L ALT 47 (9-52) U/L Alkaline Phosphatase 87 (38-126) U/L Total Protein 7.6 (6.3-8.2) g/dL Albumin 4.3 (3.5-5.0) g/dL Influenza Type A RNA Not Detected (Not Detectd) Influenza Type B (PCR) Not Detected (Not Detectd) Disposition Clinical Impression: Influenza Disposition: HOME SELF-CARE Condition: Stable Instructions (If sedation given, give patient instructions): Influenza Virus Vaccine (By injection) Additional Instructions: Please take prescribed medication as directed. Please follow with primary care. Please return to emergency department if symptoms worsen. Prescriptions: methylPREDNISolone [Medrol Dose Pack] 4 mg PO DIRECTED #1 pack Oseltamivir [Tamiflu] 75 mg PO Q12HR #10 cap Ondansetron Odt [Zofran Odt] 4 mg PO Q8HR PRN #10 tab PRN Reason: Nausea Is patient prescribed a controlled substance at d/c from ED?: No Referrals: Héctor Rodriguez MD [Primary Care Provider] - 1-2 days Time of Disposition: 15:47
[2019-08-06] MEDS ORDERED: SODIUM CHLORIDE 0.9% 1,000 ML IV STA (14:38)
[2019-08-06] MEDS ORDERED: IPRATROPIUM-ALBUTEROL 3 ML NEB INHALATION STA (14:38)
--- NOTE | 2019-08-06 14:56 | XR ---
EXAMINATION TYPE: XR chest 2V DATE OF EXAM: 08/06/2019 COMPARISON: 02/01/2017 HISTORY: Shortness of breath TECHNIQUE: Frontal and lateral views of the chest are obtained. FINDINGS: Scattered senescent parenchymal changes noted. No evidence for infiltrate. No evidence for atelectasis. Heart size is stable. Mediastinal structures are stable and grossly unremarkable. No evidence for hilar prominence. Degenerative changes dorsal spine. IMPRESSION: 1. No evidence for acute pulmonary disease.
[2019-08-06 14:57] LABS: ALT 47 U/L (9-52); AST 39 U/L (14-36); African American GFR (CKD) >90 (>60 ml/min/1.73 sqM); Albumin 4.3 g/dL (3.5-5.0); Alkaline Phosphatase 87 U/L (38-126); Anion Gap 8 mmol/L; Blood Urea Nitrogen 9 mg/dL (7-17); Calcium 9.3 mg/dL (8.4-10.2); Carbon Dioxide 26 mmol/L (22-30); Chloride 107 mmol/L (98-107); Glucose 114 mg/dL (74-99); Potassium 3.8 mmol/L (3.5-5.1); Sodium 141 mmol/L (137-145); Total Protein 7.6 g/dL (6.3-8.2)
[2019-08-06 15:21] LABS: Basophils % (A) 1 %; Eosinophils # (A) 0.2 k/uL (0-0.7); Eosinophils % (A) 3 %; HCT 44.1 % (34.0-46.0); HGB 15.6 gm/dL (11.4-16.0); Lymphocytes # (A) 1.4 k/uL (1.0-4.8); Lymphocytes % (A) 31 %; MCH 31.7 pg (25.0-35.0); MCHC 35.3 g/dL (31.0-37.0); MCV 89.9 fL (80.0-100.0); Mean Platelet Volume 5.4; Monocytes # (A) 0.3 k/uL (0-1.0); Monocytes % (A) 8 %; Neutrophils # (A) 2.3 k/uL (1.3-7.7); Neutrophils % (A) 53 %; Platelet Count 241 k/uL (150-450); RBC 4.91 m/uL (3.80-5.40); RDW 12.6 % (11.5-15.5); WBC 4.4 k/uL (3.8-10.6)
[2019-08-06] MEDS ORDERED: predniSONE 20 MG TAB PO STA (15:25)
[2019-08-06] MEDS ORDERED: FAMOTIDINE 20 MG TAB PO STA (15:25)
[2019-08-06 16:23] VITALS: BP 127/87; PULSE 92; RESP 18; TEMP 98.2
== END 2019-08-06 16:23 | disposition home or self-care (01) ==
LOC: EC 13:38
DX: J11.1 Influenza due to unidentified influenza virus with other respiratory manifestations (principal); R11.2 Nausea with vomiting, unspecified; R19.7 Diarrhea, unspecified; H92.09 Otalgia, unspecified ear; L30.9 Dermatitis, unspecified; J44.9 Chronic obstructive pulmonary disease, unspecified; M19.90 Unspecified osteoarthritis, unspecified site; Z88.0 Allergy status to penicillin; Z88.1 Allergy status to other antibiotic agents; Z88.5 Allergy status to narcotic agent; Z91.018 Allergy to other foods; Z91.040 Latex allergy status; Z91.048 Other nonmedicinal substance allergy status; Z79.1 Long term (current) use of non-steroidal anti-inflammatories (NSAID); Z79.51 Long term (current) use of inhaled steroids; Z87.01 Personal history of pneumonia (recurrent); Z90.89 Acquired absence of other organs; Z83.1 Family history of other infectious and parasitic diseases
CPT/HCPCS: 99284; 96360; 36415; 94640; 80053; 85025; 87502; 71046; J7512

== ENCOUNTER 2019-08-20 00:02 | Emergency (ER) | payer BC ==
[2019-08-20] MEDS ORDERED: SODIUM CHLORIDE 0.9% 1,000 ML IV STA (00:53)
[2019-08-20 01:13] LABS: Appearance,Urine Clear (Clear); Basophils # (A) 0.2 k/uL (0-0.2); Basophils % (A) 3 %; Bilirubin,Urine Negative (Negative); Blood,Urine Negative (Negative); Color,Urine Light Yellow; Eosinophils # (A) 0.3 k/uL (0-0.7); Eosinophils % (A) 3 %; Glucose,Urine (UA) Negative (Negative); HCT 44.8 % (34.0-46.0); HGB 14.9 gm/dL (11.4-16.0); Ketones,Urine Negative (Negative); Leukocyte Esterase,Urine Negative (Negative); Lymphocytes # (A) 1.1 k/uL (1.0-4.8); Lymphocytes % (A) 13 %; MCH 30.1 pg (25.0-35.0); MCHC 33.2 g/dL (31.0-37.0); MCV 90.6 fL (80.0-100.0); Mean Platelet Volume 6.1; Monocytes # (A) 0.6 k/uL (0-1.0); Monocytes % (A) 7 %; Neutrophils # (A) 6.2 k/uL (1.3-7.7); Neutrophils % (A) 72 %; Nitrite,Urine Negative (Negative); Platelet Count 211 k/uL (150-450); Protein,Urine Negative (Negative); RBC 4.94 m/uL (3.80-5.40); RDW 12.4 % (11.5-15.5); Specific Gravity,Urine 1.009 (1.001-1.035); Urobilinogen,Urine <2.0 mg/dL (<2.0); WBC 8.6 k/uL (3.8-10.6)
[2019-08-20 01:28] LABS: ALT 40 U/L (9-52); AST 23 U/L (14-36); African American GFR (CKD) >90 (>60 ml/min/1.73 sqM); Albumin 3.9 g/dL (3.5-5.0); Alkaline Phosphatase 101 U/L (38-126); Anion Gap 5 mmol/L; Blood Urea Nitrogen 11 mg/dL (7-17); Calcium 8.9 mg/dL (8.4-10.2); Carbon Dioxide 27 mmol/L (22-30); Chloride 108 mmol/L (98-107); Glucose 126 mg/dL (74-99); Potassium 3.4 mmol/L (3.5-5.1); Sodium 140 mmol/L (137-145); Total Bilirubin 0.9 mg/dL (0.2-1.3)
[2019-08-20] MEDS ORDERED: KETOROLAC 30 MG/ML 1 ML VIAL IVP STA (01:28)
[2019-08-20] MEDS ORDERED: ACETAMINOPHEN TAB 325 MG TAB PO STA (01:43)
--- NOTE | 2019-08-20 02:05 | CT ---
EXAMINATION TYPE: CT abdomen pelvis w con DATE OF EXAM: 08/20/2019 COMPARISON: 05/19/2016 HISTORY: Patient presents with LLQ pain. CT DLP: 1371.4 mGycm Automated exposure control for dose reduction was used. TECHNIQUE: Helical acquisition of images was performed from the lung bases through the pelvis. CONTRAST: Performed without Oral Contrast and with IV Contrast, patient injected with 100mL mL of Isovue 300. FINDINGS: There is some mild atelectasis at the lung bases. There is no pleural effusion. There is no pericardi al effusion. There is mild fatty infiltration of the liver. Gallbladder appears normal. Spleen appears normal. The re is small hiatal hernia. Stomach is otherwise normal. There is no pancreatic mass. There is no adrenal mass. Kidneys show satisfactory contrast opacification. There is no hydronephrosi s. There is 1 cm cortical cyst lateral left kidney. There is no retroperitoneal adenopathy. There is no hydronephrosis. Ureters are not dilated. Bladder distends smoothly. There is no inguinal hernia. There is no free fluid in the pelvis. There a re a few sigmoid diverticula. There is minimal fat stranding around the mid sigmoid colon. Appendix i s not seen. There is no sign of thickened appendix. There is no sign of a bowel obstruction. There are no dilated loops. There is no free air. There is n o ascites. Lumbar spine is intact. The bony pelvis appears intact. IMPRESSION: THERE IS EVIDENCE OF MILD FOCAL DIVERTICULITIS IN THE MID SIGMOID COLON IN DIFFERENT LOCATION THAN LA ST EXAM. PREVIOUS EXAM SHOWS INFLAMMATORY PROCESS IN THE PROXIMAL SIGMOID COLON. NO EVIDENCE OF AN AB SCESS.
[2019-08-20] MEDS ORDERED: LEVOFLOXACIN 750 MG TAB PO STA (02:27)
[2019-08-20 02:34] VITALS: BP 129/78; PULSE 92; RESP 16
--- NOTE | 2019-08-20 02:45 | ED ---
General Adult HPI - General Chief complaint: Abdominal Pain Stated complaint: Abd pain Time Seen by Provider: 08/20/19 00:53 Source: patient, RN notes reviewed, old records reviewed Mode of arrival: wheelchair Limitations: no limitations - History of Present Illness Initial comments: 53-year-old female patient past and has a significant for status post tubal ligation, appendectomy, history of diverticulitis, history of renal calculi presents to ED chief complaint of lower quadrant pain. This began approximately 10 PM. Reports nausea without emesis. Denies any other complaints. Systemic: Pt denies fatigue, fever/chills, rash. Pt denies weakness, night sweats, weight loss. Neuro: Pt denies headache, visual disturbances, syncope or pre-syncope. HEENT: Pt denies ocular discharge or irritation, otalgia, rhinorrhea, pharyngitis or notable lymphadenopathy. Cardiopulmonary: Pt denies chest pain, SOB, heart palpitations, dyspnea on exertion. Abdominal/GI: Pt denies abdominal pain, v/d. : Pt denies dysuria, burning w/ urination, frequency/urgency. Denies new onset urinary or bowel incontinence. MSK: Pt denies myalgia, loss of strength or function in extremities. Neuro: Pt denies new onset weakness, paresthesias. - Related Data Home Medications Medication Instructions Recorded Confirmed Acetaminophen Tab [Tylenol Tab] 650 mg PO Q6H PRN 08/06/19 08/06/19 Ibuprofen [Advil] 200 mg PO Q6HR PRN 08/06/19 08/06/19 LORazepam [Ativan] 0.5 mg PO TID PRN 08/06/19 08/06/19 Mometasone/Formoterol [Dulera 200 2 puff INHALATION RT-Q6H PRN 08/06/19 08/06/19 Mcg/5 Mcg Inhaler] diphenhydrAMINE HCL [Benadryl] 25 mg PO BID PRN 08/06/19 08/06/19 Previous Rx's Medication Instructions Recorded Ondansetron Odt [Zofran Odt] 4 mg PO Q8HR PRN #10 tab 08/06/19 Oseltamivir [Tamiflu] 75 mg PO Q12HR #10 cap 08/06/19 methylPREDNISolone [Medrol Dose 4 mg PO DIRECTED #1 pack 08/06/19 Pack] Levofloxacin [Levaquin] 750 mg PO DAILY 6 Days #6 tab 08/20/19 Allergies Allergy/AdvReac Type Severity Reaction Status Date / Time erythromycin base Allergy Unknown Verified 08/20/19 00:22 latex Allergy Rash/Hives Verified 08/20/19 00:22 Penicillins Allergy Unknown Verified 08/20/19 00:22 tetracycline Allergy Unknown Verified 08/20/19 00:22 coconut AdvReac Nausea & Verified 08/20/19 00:22 Vomiting hydromorphone HCl AdvReac Hallucinati Verified 08/20/19 00:22 [From Dilaudid] ons iron AdvReac Unknown Verified 08/20/19 00:22 morphine AdvReac Hallucinati Verified 08/20/19 00:22 ons Review of Systems ROS Statement: Those systems with pertinent positive or pertinent negative responses have been documented in the HPI. ROS Other: All systems not noted in ROS Statement are negative. 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 Hx of and current issue with eczema. History of Any Multi-Drug Resistant Organisms: None Reported Past Surgical History: Adenoidectomy, Appendectomy, Hysterectomy, Tonsillectomy, Tubal Ligation Additional Past Surgical History / Comment(s): Partial Hysterectomy, Colonoscopy, polyps removed. Past Anesthesia/Blood Transfusion Reactions: No Reported Reaction Additional Past Anesthesia/Blood Transfusion Reaction / Comment(s): Pt states she does not need much anesthesia, she reacts to it very easily. Past Psychological History: Anxiety Smoking Status: Never smoker Past Alcohol Use History: Rare Past Drug Use History: None Reported - Past Family History Mother Additional Family Medical History / Comment(s): TB Sister(s) Family Medical History: Cancer General Exam - General Exam Comments Initial Comments: Constitutional: NAD, AOX3, Pt has pleasant affect. HEENT: NC/AT, trachea midline, neck supple, no lymphadenopathy. Posterior pharynx non erythematous, without exudates. External ears appear normal, without discharge. Mucous membranes moist. Eyes PERRLA, EOM intact. There is no scleral icterus. No pallor noted. Cardiopulmonary: RRR, no murmurs, rubs or gallops, no JVD noted. Lungs CTAB in anterior and posterior goodson. No peripheral edema. Abdominal exam: Abdomen soft and non-distended. Abdomen mildly tender to palpation left lower quadrant, no other areas of abdominal tenderness.. Bowel sounds active in LLQ. No hepatosplenomegaly. No ecchymosis Neuro: CN II-XII grossly intact. No nuchal rigidity. No raccon eyes, no borjas sign, no hemotympanum. No cervical spinal tenderness. MSK: No posterior calf tenderness bilaterally, homans sign negative bilaterally. Posterior tibialis and radial pulse +2 bilaterally. Sensation intact in upper and lower extremities. Full active ROM in upper and lower extremities, 5/5 stregnth. Limitations: no limitations Course Vital Signs 08/20/19 08/20/19 00:19 02:33 Temperature 99.9 F H 100.8 F H Pulse Rate 116 H 92 Respiratory 18 16 Rate Blood Pressure 148/80 129/78 O2 Sat by Pulse 94 L 98 Oximetry Medical Decision Making - Medical Decision Making 53-year-old female patient presents to ED chief complaint left lower quadrant abdominal pain. Began approximately 10 PM. Patient vital signs. Mild fever, mild tachycardia. Patient administered antipyretic. Laboratory investigations non-impressive. Lactic acid within normal limits. No leukocytosis. CT and pelvis displayed uncomplicated sigmoid diverticulitis. Patient was discharged with Levaquin will have close outpatient follow-up with primary care provider. Case discussed with Dr. Vela. - Lab Data Result diagrams: 08/20/19 00:58 08/20/19 00:58 Lab Results 08/20/19 08/20/19 08/20/19 Range/Units 00:58 00:58 00:58 WBC 8.6 (3.8-10.6) k/uL RBC 4.94 (3.80-5.40) m/uL Hgb 14.9 (11.4-16.0) gm/dL Hct 44.8 (34.0-46.0) % MCV 90.6 (80.0-100.0) fL MCH 30.1 (25.0-35.0) pg MCHC 33.2 (31.0-37.0) g/dL RDW 12.4 (11.5-15.5) % Plt Count 211 (150-450) k/uL Neutrophils % 72 % Lymphocytes % 13 % Monocytes % 7 % Eosinophils % 3 % Basophils % 3 % Neutrophils # 6.2 (1.3-7.7) k/uL Lymphocytes # 1.1 (1.0-4.8) k/uL Monocytes # 0.6 (0-1.0) k/uL Eosinophils # 0.3 (0-0.7) k/uL Basophils # 0.2 (0-0.2) k/uL Sodium 140 (137-145) mmol/L Potassium 3.4 L (3.5-5.1) mmol/L Chloride 108 H (98-107) mmol/L Carbon Dioxide 27 (22-30) mmol/L Anion Gap 5 mmol/L BUN 11 (7-17) mg/dL Creatinine 0.76 (0.52-1.04) mg/dL Est GFR (CKD-EPI)AfAm >90 (>60 ml/min/1.73 sqM) Est GFR (CKD-EPI)NonAf >90 (>60 ml/min/1.73 sqM) Glucose 126 H (74-99) mg/dL Plasma Lactic Acid Rufino (0.7-2.0) mmol/L Calcium 8.9 (8.4-10.2) mg/dL Total Bilirubin 0.9 (0.2-1.3) mg/dL AST 23 (14-36) U/L ALT 40 (9-52) U/L Alkaline Phosphatase 101 (38-126) U/L Total Protein 7.0 (6.3-8.2) g/dL Albumin 3.9 (3.5-5.0) g/dL Lipase 207 (23-300) U/L Urine Color Urine Appearance (Clear) Urine pH (5.0-8.0) Ur Specific [place] (1.001-1.035) Urine Protein (Negative) Urine Glucose (UA) (Negative) Urine Ketones (Negative) Urine Blood (Negative) Urine Nitrite (Negative) Urine Bilirubin (Negative) Urine Urobilinogen (<2.0) mg/dL Ur Leukocyte Esterase (Negative) Urine HCG, Qual Not Detected (Not Detectd) 08/20/19 08/20/19 Range/Units 00:58 00:58 WBC (3.8-10.6) k/uL RBC (3.80-5.40) m/uL Hgb (11.4-16.0) gm/dL Hct (34.0-46.0) % MCV (80.0-100.0) fL MCH (25.0-35.0) pg MCHC (31.0-37.0) g/dL RDW (11.5-15.5) % Plt Count (150-450) k/uL Neutrophils % % Lymphocytes % % Monocytes % % Eosinophils % % Basophils % % Neutrophils # (1.3-7.7) k/uL Lymphocytes # (1.0-4.8) k/uL Monocytes # (0-1.0) k/uL Eosinophils # (0-0.7) k/uL Basophils # (0-0.2) k/uL Sodium (137-145) mmol/L Potassium (3.5-5.1) mmol/L Chloride (98-107) mmol/L Carbon Dioxide (22-30) mmol/L Anion Gap mmol/L BUN (7-17) mg/dL Creatinine (0.52-1.04) mg/dL Est GFR (CKD-EPI)AfAm (>60 ml/min/1.73 sqM) Est GFR (CKD-EPI)NonAf (>60 ml/min/1.73 sqM) Glucose (74-99) mg/dL Plasma Lactic Acid Rufino 1.4 (0.7-2.0) mmol/L Calcium (8.4-10.2) mg/dL Total Bilirubin (0.2-1.3) mg/dL AST (14-36) U/L ALT (9-52) U/L Alkaline Phosphatase (38-126) U/L Total Protein (6.3-8.2) g/dL Albumin (3.5-5.0) g/dL Lipase (23-300) U/L Urine Color Light Yellow Urine Appearance Clear (Clear) Urine pH 7.0 (5.0-8.0) Ur Specific [place] 1.009 (1.001-1.035) Urine Protein Negative (Negative) Urine Glucose (UA) Negative (Negative) Urine Ketones Negative (Negative) Urine Blood Negative (Negative) Urine Nitrite Negative (Negative) Urine Bilirubin Negative (Negative) Urine Urobilinogen <2.0 (<2.0) mg/dL Ur Leukocyte Esterase Negative (Negative) Urine HCG, Qual (Not Detectd) Disposition Clinical Impression: Diverticulitis Disposition: HOME SELF-CARE Condition: Stable Instructions (If sedation given, give patient instructions): Diverticulitis (ED), Diverticulitis Diet (ED) Additional Instructions: Follow-up with primary care provider tomorrow. Take antibiotics as directed. Return to ER if condition worsens. Prescriptions: Levofloxacin [Levaquin] 750 mg PO DAILY 6 Days #6 tab Is patient prescribed a controlled substance at d/c from ED?: No Referrals: Héctor Rodriguez MD [Primary Care Provider] - 1-2 days
[2019-08-20] MEDS ORDERED: ACET/COD 300 MG/30 MG STARTER PACK 6 TAB BTL PO STA (02:55)
[2019-08-20 02:59] VITALS: TEMP 98.1
== END 2019-08-20 03:04 | disposition home or self-care (01) ==
LOC: EC 00:02
DX: K57.32 Diverticulitis of large intestine without perforation or abscess without bleeding (principal); F41.9 Anxiety disorder, unspecified; R00.0 Tachycardia, unspecified; J45.909 Unspecified asthma, uncomplicated; Z79.899 Other long term (current) drug therapy; Z88.1 Allergy status to other antibiotic agents; Z91.040 Latex allergy status; Z88.0 Allergy status to penicillin; Z91.018 Allergy to other foods; Z88.5 Allergy status to narcotic agent; Z98.51 Tubal ligation status; Z90.49 Acquired absence of other specified parts of digestive tract; Z87.19 Personal history of other diseases of the digestive system; Z87.442 Personal history of urinary calculi; Z90.711 Acquired absence of uterus with remaining cervical stump
CPT/HCPCS: 36415; 80053; 83605; 83690; 85025; 81003; 81025; 74177; 99284; 96374; 96361; J1885; Q9967

== ENCOUNTER 2020-03-01 23:57 | Emergency (ER) | payer BC ==
[2020-03-02 00:02] VITALS: TEMP 98.4
[2020-03-02] MEDS ORDERED: SODIUM CHLORIDE 0.9% 1,000 ML IV STA (00:25)
[2020-03-02] MEDS ORDERED: ONDANSETRON 4 MG/2 ML VIAL IVP STA (00:25)
[2020-03-02] MEDS ORDERED: KETOROLAC 30 MG/ML 1 ML VIAL IVP STA (00:26)
[2020-03-02 00:45] LABS: Basophils % (A) 1 %; Eosinophils # (A) 0.3 k/uL (0-0.7); Eosinophils % (A) 3 %; HCT 44.4 % (34.0-46.0); HGB 14.8 gm/dL (11.4-16.0); Lymphocytes # (A) 1.5 k/uL (1.0-4.8); Lymphocytes % (A) 20 %; MCH 30.3 pg (25.0-35.0); MCHC 33.3 g/dL (31.0-37.0); MCV 91.1 fL (80.0-100.0); Mean Platelet Volume 6.9; Monocytes # (A) 0.6 k/uL (0-1.0); Monocytes % (A) 7 %; Neutrophils # (A) 5.2 k/uL (1.3-7.7); Neutrophils % (A) 67 %; Platelet Count 214 k/uL (150-450); RBC 4.87 m/uL (3.80-5.40); RDW 12.9 % (11.5-15.5); WBC 7.8 k/uL (3.8-10.6)
--- NOTE | 2020-03-02 00:53 | XR ---
EXAMINATION TYPE: XR KUB DATE OF EXAM: 03/02/2020 COMPARISON: 05/19/2016 HISTORY: Pain TECHNIQUE: 2 views supine FINDINGS: Bowel gas pattern is normal. There is no sign of intestinal obstruction or pneumoperitoneum . Fecal pattern is normal. There is no sign of a mass. There are no pathologic calcifications over th e kidneys. IMPRESSION: Nonacute abdomen. No adverse change compared to old exam.
[2020-03-02 01:00] LABS: ALT 25 U/L (4-34); AST 27 U/L (14-36); African American GFR (CKD) >90 (>60 ml/min/1.73 sqM); Albumin 3.9 g/dL (3.5-5.0); Alkaline Phosphatase 105 U/L (38-126); Amylase 55 U/L (30-110); Anion Gap 6 mmol/L; Blood Urea Nitrogen 13 mg/dL (7-17); Calcium 9.2 mg/dL (8.4-10.2); Carbon Dioxide 25 mmol/L (22-30); Chloride 106 mmol/L (98-107); Glucose 127 mg/dL (74-99); Non-African American GFR(CKD) >90 (>60 ml/min/1.73 sqM); Potassium 3.5 mmol/L (3.5-5.1); Sodium 137 mmol/L (137-145); Total Bilirubin 0.7 mg/dL (0.2-1.3); Total Protein 6.9 g/dL (6.3-8.2)
[2020-03-02 01:22] LABS: Appearance,Urine Clear (Clear); Bilirubin,Urine Negative (Negative); Blood,Urine Negative (Negative); Color,Urine Colorless; Glucose,Urine (UA) Negative (Negative); Ketones,Urine Negative (Negative); Leukocyte Esterase,Urine Negative (Negative); Nitrite,Urine Negative (Negative); Protein,Urine Negative (Negative); Specific Gravity,Urine 1.003 (1.001-1.035); Urobilinogen,Urine <2.0 mg/dL (<2.0)
--- NOTE | 2020-03-02 02:10 | CT ---
EXAMINATION TYPE: CT abdomen pelvis w con DATE OF EXAM: 03/02/2020 COMPARISON: 08/20/2019 HISTORY: LLQ abd pain CT DLP: 1512 mGycm Automated exposure control for dose reduction was used. CONTRAST: Performed with IV Contrast, patient injected with 100 mL of Isovue 300. There is mild atelectasis at the lung bases. There is no pleural effusion. There is no pericardial ef fusion. Heart size is normal. Liver shows no focal defect. Spleen and pancreas appear normal. The bile ducts are not dilated. Stoma ch is intact. Gallbladder appears normal. There is no adrenal mass. Kidneys show satisfactory contrast opacification. There is no hydronephrosi s. Ureters are not dilated. There are bilateral small renal cortical cysts that measure up to 1.5 cm. There is normal excretion on the delayed images. There is no retroperitoneal adenopathy. Bladder distends smoothly. There is no inguinal hernia. There is no free fluid in the pelvis. Appendix is not seen. There is no sign of thickened appendix. There is no mesenteric edema. There is no ascites or free air. There is no sign of a bowel obstruction. There is very minimal fat stranding around the posterior aspect of the proximal sigmoid colon with a single diverticulum. Lumbar vertebra have normal spacing and alignment. Posterior elements are intact. Bony pelvis appears intact. IMPRESSION: There is very minimal fat stranding at the posterior proximal sigmoid colon that is suggestive of min imal focal diverticulitis. No abscess. Patchy atelectasis at the lung bases.
[2020-03-02 02:21] VITALS: BP 128/81; PULSE 70; RESP 18
[2020-03-02] MEDS ORDERED: metroNIDAZOLE 500 MG TAB PO STA (02:43)
[2020-03-02] MEDS ORDERED: CIPROFLOXACIN HCL 500 MG TAB PO STA (02:43)
--- NOTE | 2020-03-02 02:51 | ED ---
Abdominal Pain HPI - General Chief Complaint: Abdominal Pain Stated Complaint: Abdominal pain Time Seen by Provider: 03/02/20 00:05 Source: patient Mode of arrival: ambulatory Limitations: no limitations - History of Present Illness Initial Comments: 54-year-old female patient presents to the emergency department today for evaluation of left lower quadrant abdominal pain. Patient states pain has been present for the last hour and a half. States it feels similar to when she had diverticulitis in the past. She denies any fever or chills. Denies any nausea, vomiting, or diarrhea. Denies any hematochezia or melena. Patient states she has also had kidney stone in the past but denies any urinary urgency, frequency, dysuria, or hematuria. States that she has had appendectomy and hysterectomy in the past. Denies any chest pain or shortness of breath. Patient denies any recent rash, cough, shortness of breath, chest pain, back pain, numbness, tingling, dizziness, weakness, headache, visual changes, or any other complaints. - Related Data Home Medications Medication Instructions Recorded Confirmed Acetaminophen Tab [Tylenol Tab] 650 mg PO Q6H PRN 08/06/19 08/06/19 Ibuprofen [Advil] 200 mg PO Q6HR PRN 08/06/19 08/06/19 LORazepam [Ativan] 0.5 mg PO TID PRN 08/06/19 08/06/19 Mometasone/Formoterol [Dulera 200 2 puff INHALATION RT-Q6H PRN 08/06/19 08/06/19 Mcg/5 Mcg Inhaler] diphenhydrAMINE HCL [Benadryl] 25 mg PO BID PRN 08/06/19 08/06/19 Previous Rx's Medication Instructions Recorded Ondansetron Odt [Zofran Odt] 4 mg PO Q8HR PRN #10 tab 08/06/19 Oseltamivir [Tamiflu] 75 mg PO Q12HR #10 cap 08/06/19 methylPREDNISolone [Medrol Dose 4 mg PO DIRECTED #1 pack 08/06/19 Pack] Levofloxacin [Levaquin] 750 mg PO DAILY 6 Days #6 tab 08/20/19 Ciprofloxacin HCl [Cipro] 500 mg PO Q12H 3 Days #20 tab 03/02/20 metroNIDAZOLE [Flagyl] 500 mg PO TID #30 tab 03/02/20 Allergies Allergy/AdvReac Type Severity Reaction Status Date / Time erythromycin base Allergy Unknown Verified 03/02/20 00:01 latex Allergy Rash/Hives Verified 03/02/20 00:01 Penicillins Allergy Unknown Verified 03/02/20 00:01 tetracycline Allergy Unknown Verified 03/02/20 00:01 coconut AdvReac Nausea & Verified 03/02/20 00:01 Vomiting hydromorphone HCl AdvReac Hallucinati Verified 03/02/20 00:01 [From Dilaudid] ons iron AdvReac Unknown Verified 03/02/20 00:01 morphine AdvReac Hallucinati Verified 03/02/20 00:01 ons Review of Systems ROS Statement: Those systems with pertinent positive or pertinent negative responses have been documented in the HPI. ROS Other: All systems not noted in ROS Statement are negative. 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 Hx of and current issue with eczema. History of Any Multi-Drug Resistant Organisms: None Reported Past Surgical History: Adenoidectomy, Appendectomy, Hysterectomy, Tonsillectomy, Tubal Ligation Additional Past Surgical History / Comment(s): Partial Hysterectomy, Colonoscopy, polyps removed. Past Anesthesia/Blood Transfusion Reactions: No Reported Reaction Additional Past Anesthesia/Blood Transfusion Reaction / Comment(s): Pt states she does not need much anesthesia, she reacts to it very easily. Past Psychological History: Anxiety Smoking Status: Never smoker Past Alcohol Use History: Rare Past Drug Use History: None Reported - Past Family History Mother Additional Family Medical History / Comment(s): TB Sister(s) Family Medical History: Cancer General Exam Limitations: no limitations General appearance: alert, in no apparent distress, other (This is a well- developed, well-nourished adult female patient in no acute distress. Vital signs upon presentation are temperature 98.4F, pulse 91, respirations 16, blood pressure 119/96, pulse ox 100% on room air.) Eye exam: Present: normal appearance, PERRL, EOMI. Absent: scleral icterus, conjunctival injection, periorbital swelling ENT exam: Present: normal exam, normal oropharynx, mucous membranes moist Respiratory exam: Present: normal lung sounds bilaterally. Absent: respiratory distress, wheezes, rales, rhonchi, stridor Cardiovascular Exam: Present: regular rate, normal rhythm, normal heart sounds. Absent: systolic murmur, diastolic murmur, rubs, gallop, clicks GI/Abdominal exam: Present: soft, tenderness (Left lower quadrant tenderness), normal bowel sounds. Absent: distended, guarding, rebound, rigid Neurological exam: Present: alert, oriented X3, CN II-XII intact Psychiatric exam: Present: normal affect, normal mood Skin exam: Present: warm, dry, intact, normal color. Absent: rash Course Vital Signs 03/01/20 03/02/20 23:58 02:21 Temperature 98.4 F Pulse Rate 91 70 Respiratory 16 18 Rate Blood Pressure 119/96 128/81 O2 Sat by Pulse 100 98 Oximetry Medical Decision Making - Medical Decision Making 54-year-old female patient presents to the emergency department today for evaluation of left lower quadrant abdominal pain. Physical examination did reveal tenderness over the left lower quadrant. She is afebrile, vital signs. Labs reviewed and revealed normal white blood cell count. CT abdomen and pelvis was obtained and did show evidence for focal diverticulitis at the proximal sigmoid colon. We'll start oral antibiotics and discharged home. She is instructed follow up with her primary care physician for recheck in 1-2 days. We did discuss abscess as a possible complication and return parameters in detail. She verbalizes understanding and agrees with this plan. - Lab Data Result diagrams: 03/02/20 00:26 03/02/20 00:26 Lab Results 03/02/20 03/02/20 03/02/20 Range/Units 00: 00:26 00:26 WBC 7.8 (3.8-10.6) k/uL RBC 4.87 (3.80-5.40) m/uL Hgb 14.8 (11.4-16.0) gm/dL Hct 44.4 (34.0-46.0) % MCV 91.1 (80.0-100.0) fL MCH 30.3 (25.0-35.0) pg MCHC 33.3 (31.0-37.0) g/dL RDW 12.9 (11.5-15.5) % Plt Count 214 (150-450) k/uL Neutrophils % 67 % Lymphocytes % 20 % Monocytes % 7 % Eosinophils % 3 % Basophils % 1 % Neutrophils # 5.2 (1.3-7.7) k/uL Lymphocytes # 1.5 (1.0-4.8) k/uL Monocytes # 0.6 (0-1.0) k/uL Eosinophils # 0.3 (0-0.7) k/uL Basophils # 0.0 (0-0.2) k/uL Sodium 137 (137-145) mmol/L Potassium 3.5 (3.5-5.1) mmol/L Chloride 106 (98-107) mmol/L Carbon Dioxide 25 (22-30) mmol/L Anion Gap 6 mmol/L BUN 13 (7-17) mg/dL Creatinine 0.55 (0.52-1.04) mg/dL Est GFR (CKD-EPI)AfAm >90 (>60 ml/min/1.73 sqM) Est GFR (CKD-EPI)NonAf >90 (>60 ml/min/1.73 sqM) Glucose 127 H (74-99) mg/dL Plasma Lactic Acid Rufino 1.9 (0.7-2.0) mmol/L Calcium 9.2 (8.4-10.2) mg/dL Total Bilirubin 0.7 (0.2-1.3) mg/dL AST 27 (14-36) U/L ALT 25 (4-34) U/L Alkaline Phosphatase 105 (38-126) U/L Total Protein 6.9 (6.3-8.2) g/dL Albumin 3.9 (3.5-5.0) g/dL Amylase 55 (30-110) U/L Lipase 169 (23-300) U/L Urine Color Urine Appearance (Clear) Urine pH (5.0-8.0) Ur Specific [place] (1.001-1.035) Urine Protein (Negative) Urine Glucose (UA) (Negative) Urine Ketones (Negative) Urine Blood (Negative) Urine Nitrite (Negative) Urine Bilirubin (Negative) Urine Urobilinogen (<2.0) mg/dL Ur Leukocyte Esterase (Negative) 03/02/20 Range/Units 01:12 WBC (3.8-10.6) k/uL RBC (3.80-5.40) m/uL Hgb (11.4-16.0) gm/dL Hct (34.0-46.0) % MCV (80.0-100.0) fL MCH (25.0-35.0) pg MCHC (31.0-37.0) g/dL RDW (11.5-15.5) % Plt Count (150-450) k/uL Neutrophils % % Lymphocytes % % Monocytes % % Eosinophils % % Basophils % % Neutrophils # (1.3-7.7) k/uL Lymphocytes # (1.0-4.8) k/uL Monocytes # (0-1.0) k/uL Eosinophils # (0-0.7) k/uL Basophils # (0-0.2) k/uL Sodium (137-145) mmol/L Potassium (3.5-5.1) mmol/L Chloride (98-107) mmol/L Carbon Dioxide (22-30) mmol/L Anion Gap mmol/L BUN (7-17) mg/dL Creatinine (0.52-1.04) mg/dL Est GFR (CKD-EPI)AfAm (>60 ml/min/1.73 sqM) Est GFR (CKD-EPI)NonAf (>60 ml/min/1.73 sqM) Glucose (74-99) mg/dL Plasma Lactic Acid Rufino (0.7-2.0) mmol/L Calcium (8.4-10.2) mg/dL Total Bilirubin (0.2-1.3) mg/dL AST (14-36) U/L ALT (4-34) U/L Alkaline Phosphatase (38-126) U/L Total Protein (6.3-8.2) g/dL Albumin (3.5-5.0) g/dL Amylase (30-110) U/L Lipase (23-300) U/L Urine Color Colorless Urine Appearance Clear (Clear) Urine pH 7.0 (5.0-8.0) Ur Specific [place] 1.003 (1.001-1.035) Urine Protein Negative (Negative) Urine Glucose (UA) Negative (Negative) Urine Ketones Negative (Negative) Urine Blood Negative (Negative) Urine Nitrite Negative (Negative) Urine Bilirubin Negative (Negative) Urine Urobilinogen <2.0 (<2.0) mg/dL Ur Leukocyte Esterase Negative (Negative) - Radiology Data Radiology results: report reviewed, image reviewed CT abdomen and pelvis is obtained. Report reviewed in its entirety. Impression by Dr. Sutton shows minimal fat stranding in the posterior proximal sigmoid colon that is suggestive of minimal focal diverticulitis. No abscess. Patchy atelectasis at the lung bases. KUB was obtained. Report was reviewed in its entirety. Impression by Dr. Sutton shows nonacute abdomen. No adverse change compared to old exam Disposition Clinical Impression: Sigmoid diverticulitis Disposition: HOME SELF-CARE Condition: Good Instructions (If sedation given, give patient instructions): Diverticulitis (ED) Additional Instructions: Complete antibiotic prescription in full. Follow up with your primary care physician for recheck in 1-2 days. Return to the emergency department for any new, worsening, or concerning symptoms. Prescriptions: Ciprofloxacin HCl [Cipro] 500 mg PO Q12H 3 Days #20 tab metroNIDAZOLE [Flagyl] 500 mg PO TID #30 tab Is patient prescribed a controlled substance at d/c from ED?: No Referrals: Héctor Rodriguez MD [Primary Care Provider] - 1-2 days Time of Disposition: 02:51
== END 2020-03-02 03:09 | disposition home or self-care (01) ==
LOC: EC 23:57
DX: K57.32 Diverticulitis of large intestine without perforation or abscess without bleeding (principal); F41.9 Anxiety disorder, unspecified; Z88.0 Allergy status to penicillin; Z88.1 Allergy status to other antibiotic agents; Z88.5 Allergy status to narcotic agent; Z91.040 Latex allergy status; Z91.018 Allergy to other foods; Z88.8 Allergy status to other drugs, medicaments and biological substances
CPT/HCPCS: 36415; 80053; 82150; 83605; 83690; 85025; 81003; 74018; 74177; 99284; 96374; 96361; J1885; Q9967

== ENCOUNTER 2020-09-27 11:24 | Inpatient (IN) | payer BC, OTHER ==
[2020-09-27] MEDS ORDERED: HEPARIN SODIUM,PORCINE 5,000 UNIT/ML 1 ML VIAL IV STA (11:28)
[2020-09-27] MEDS ORDERED: ONDANSETRON 4 MG/2 ML VIAL IVP STA ×2 (11:28→11:29)
[2020-09-27] MEDS ORDERED: NALOXONE 0.4 MG/ML 1 ML VIAL IV PRN (11:29)
[2020-09-27] MEDS: HYDROmorphone 0.5 MG/0.5 ML SYRINGE IVP STA ×2 (11:35→11:41)
--- NOTE | 2020-09-27 11:36 | ED ---
General Adult HPI - General Chief complaint: Chest Pain Stated complaint: Poss STEMI Time Seen by Provider: 09/27/20 11:28 Source: patient, EMS, RN notes reviewed, old records reviewed Mode of arrival: EMS Limitations: no limitations - History of Present Illness Initial comments: 54-year-old female with acute onset chest pain which began approximately one hour prior to arrival. Substernal, described as a pressure, elevated sitting on her chest. Associated nausea and diaphoresis. EMS was called patient was given aspirin and nitroglycerin. EMS had ST segment elevation inferiorly. She has no known history of coronary artery disease. Pain does radiate to both shoulders. - Related Data Home Medications Medication Instructions Recorded Confirmed Acetaminophen Tab [Tylenol Tab] 650 mg PO Q6H PRN 08/06/19 08/06/19 Ibuprofen [Advil] 200 mg PO Q6HR PRN 08/06/19 08/06/19 LORazepam [Ativan] 0.5 mg PO TID PRN 08/06/19 08/06/19 Mometasone/Formoterol [Dulera 200 2 puff INHALATION RT-Q6H PRN 08/06/19 08/06/19 Mcg/5 Mcg Inhaler] diphenhydrAMINE HCL [Benadryl] 25 mg PO BID PRN 08/06/19 08/06/19 Previous Rx's Medication Instructions Recorded Ondansetron Odt [Zofran Odt] 4 mg PO Q8HR PRN #10 tab 08/06/19 Oseltamivir [Tamiflu] 75 mg PO Q12HR #10 cap 08/06/19 methylPREDNISolone [Medrol Dose 4 mg PO DIRECTED #1 pack 08/06/19 Pack] Levofloxacin [Levaquin] 750 mg PO DAILY 6 Days #6 tab 08/20/19 Ciprofloxacin HCl [Cipro] 500 mg PO Q12H 3 Days #20 tab 03/02/20 metroNIDAZOLE [Flagyl] 500 mg PO TID #30 tab 03/02/20 Allergies Allergy/AdvReac Type Severity Reaction Status Date / Time erythromycin base Allergy Unknown Verified 09/27/20 11:25 latex Allergy Rash/Hives Verified 09/27/20 11:25 Penicillins Allergy Unknown Verified 09/27/20 11:25 tetracycline Allergy Unknown Verified 09/27/20 11:25 coconut AdvReac Nausea & Verified 09/27/20 11:25 Vomiting hydromorphone HCl AdvReac Hallucinati Verified 09/27/20 11:25 [From Dilaudid] ons iron AdvReac Unknown Verified 09/27/20 11:25 morphine AdvReac Hallucinati Verified 09/27/20 11:25 ons Review of Systems ROS Statement: Those systems with pertinent positive or pertinent negative responses have been documented in the HPI. ROS Other: All systems not noted in ROS Statement are negative. 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 Hx of and current issue with eczema. History of Any Multi-Drug Resistant Organisms: None Reported Past Surgical History: Adenoidectomy, Appendectomy, Hysterectomy, Tonsillectomy, Tubal Ligation Additional Past Surgical History / Comment(s): Partial Hysterectomy, Colonoscopy, polyps removed. Past Anesthesia/Blood Transfusion Reactions: No Reported Reaction Additional Past Anesthesia/Blood Transfusion Reaction / Comment(s): Pt states she does not need much anesthesia, she reacts to it very easily. Past Psychological History: Anxiety Smoking Status: Never smoker Past Alcohol Use History: Rare Past Drug Use History: None Reported - Past Family History Mother Additional Family Medical History / Comment(s): TB Sister(s) Family Medical History: Cancer General Exam Limitations: no limitations General appearance: alert, in distress Head exam: Present: atraumatic, normocephalic Eye exam: Present: normal appearance, PERRL ENT exam: Present: normal exam Neck exam: Present: normal inspection. Absent: tenderness, meningismus Respiratory exam: Present: normal lung sounds bilaterally. Absent: respiratory distress, wheezes Cardiovascular Exam: Present: regular rate, normal rhythm GI/Abdominal exam: Present: soft. Absent: distended, tenderness, guarding, rebound Extremities exam: Present: normal capillary refill, other (Bilateral DP pulses 2+). Absent: pedal edema Neurological exam: Present: alert, oriented X3, CN II-XII intact. Absent: motor sensory deficit Psychiatric exam: Present: anxious Skin exam: Present: diaphoretic, pallor Course Vital Signs 09/27/20 11:29 Temperature 97.9 F Pulse Rate 82 Respiratory 24 Rate O2 Sat by Pulse 96 Oximetry EKG Findings - EKG Comments: EKG Findings:: EKG showing sinus rhythm with PVC, concern for elevation inferiorly. Rate of 83, OK interval 178, QRS duration 84, QTC 470 aVL T-wave inversion. Boil Off Worker EKG showing increased ST segment elevation Medical Decision Making - Medical Decision Making 54-year-old female with typical chest pain concerning for ACS, EKG showing ST segment elevation in the inferior leads. Concrete Stone Finishing Supervisor was activated, patient had been given aspirin nitroglycerin by EMS. No further nitroglycerin administered in the setting of suspected inferior DC. She's given Dilaudid and heparin. Dr. Rodriguez for admission. Disposition Clinical Impression: ST elevation myocardial infarction (STEMI) Disposition: ADMITTED IP TO THIS HOSP Condition: Serious Is patient prescribed a controlled substance at d/c from ED?: No Referrals: Héctor Rodriguez MD [Primary Care Provider] - 1-2 days Time of Disposition: 11:33
--- NOTE | 2020-09-27 11:46 | XR ---
EXAMINATION TYPE: XR chest 1V portable DATE OF EXAM: 09/27/2020 COMPARISON: 08/06/2019 HISTORY: Chest pain TECHNIQUE: Single frontal view of the chest is obtained. FINDINGS: There is no focal air space opacity, pleural effusion, or pneumothorax seen. The cardiac silhouette size is within normal limits. The osseous structures are intact. AC joint arthropathy on the right. Assessment interstitium limited due to reduced inspiration. IMPRESSION: No acute process.
[2020-09-27 11:49] LABS: INR 0.9 (<1.2); Partial Thromboplastin Time 24.3 sec (22.0-30.0); Prothrombin Time 9.9 sec (9.0-12.0)
[2020-09-27] MEDS ORDERED: IV FLUID CONTINUATION 800 ML IV ONE (11:50)
[2020-09-27 11:52] LABS: ALT 42 U/L (4-34); AST 39 U/L (14-36); African American GFR (CKD) >90 (>60 ml/min/1.73 sqM); Albumin 4.1 g/dL (3.5-5.0); Alkaline Phosphatase 91 U/L (38-126); Anion Gap 8 mmol/L; Blood Urea Nitrogen 14 mg/dL (7-17); Calcium 8.8 mg/dL (8.4-10.2); Carbon Dioxide 23 mmol/L (22-30); Chloride 110 mmol/L (98-107); Glucose 144 mg/dL (74-99); Non-African American GFR(CKD) >90 (>60 ml/min/1.73 sqM); Potassium 3.7 mmol/L (3.5-5.1); Sodium 141 mmol/L (137-145); Total Bilirubin 0.9 mg/dL (0.2-1.3); Total Protein 7.3 g/dL (6.3-8.2)
[2020-09-27] MEDS ORDERED: LIDOCAINE 1% INJ 10MG/ML (20 ML MDV) ONE (11:53)
[2020-09-27] MEDS: MIDAZOLAM 2 MG/2 ML VIAL IVP ONE ×2 (11:55→12:18)
[2020-09-27] MEDS ORDERED: LIDOCAINE 1% INJ 10MG/ML (20 ML MDV) SQ ONE (11:57)
[2020-09-27] MEDS ORDERED: fentaNYL (PF) 50 MCG/ML 2 ML AMP ONE (12:02)
[2020-09-27] MEDS ORDERED: fentaNYL (PF) 50 MCG/ML 2 ML AMP IVP ONE (12:03)
[2020-09-27 12:07] LABS: Basophils % (A) 0 %; Eosinophils # (A) 0.2 k/uL (0-0.7); Eosinophils % (A) 6 %; HCT 45.9 % (34.0-46.0); HGB 15.3 gm/dL (11.4-16.0); Lymphocytes # (A) 1.6 k/uL (1.0-4.8); Lymphocytes % (A) 37 %; MCH 29.9 pg (25.0-35.0); MCHC 33.4 g/dL (31.0-37.0); MCV 89.6 fL (80.0-100.0); Mean Platelet Volume 6.8; Monocytes # (A) 0.3 k/uL (0-1.0); Monocytes % (A) 7 %; Neutrophils % (A) 47 %; Platelet Count 203 k/uL (150-450); RBC 5.13 m/uL (3.80-5.40); RDW 12.9 % (11.5-15.5); WBC 4.3 k/uL (3.8-10.6)
[2020-09-27] MEDS ORDERED: NITROGLYCERIN-D5W PMX 50 MG in DEXTROSE/WATER 1 250ML.BAG IV ONE (12:13)
[2020-09-27] MEDS ORDERED: CLOPIDOGREL 75 MG TAB ONE (12:13)
[2020-09-27] MEDS ORDERED: HEPARIN SODIUM,PORCINE 5,000 UNIT/ML 1 ML VIAL IV PRN (12:16)
[2020-09-27] MEDS ORDERED: CLOPIDOGREL 75 MG TAB PO ONE (12:18)
[2020-09-27] MEDS ORDERED: IOPAMIDOL-370 125ML BTL INJ ONE (12:20)
[2020-09-27] MEDS ORDERED: ONDANSETRON 4 MG/2 ML VIAL ONE (12:32)
[2020-09-27] MEDS ORDERED: ONDANSETRON 4 MG/2 ML VIAL IVP ONE (12:33)
[2020-09-27 12:46] LABS: Cholesterol 251 mg/dL (<200); HDL Cholesterol 43 mg/dL (40-60); LDL Cholesterol,Calculated 188 mg/dL (0-99); Triglycerides 102 mg/dL (<150)
--- NOTE | 2020-09-27 12:59 | P.CRDCN ---
History of Present Illness Consult date: 09/27/20 History of present illness: CHIEF COMPLAINT: Chest pain HISTORY OF PRESENT ILLNESS: This is a 54 year old female with a past medical history significant for asthma, GERD, osteoarthritis, sleep apnea without CPAP use, and migraines. Patient does not follow with a waistline joiner overlock. We have been asked to see the patient in consultation for STEMI. Patient presented via EMS. Patient examined at the bedside in the emergency room. Patient reports she began having chest pain about an hour prior to coming to the hospital. She describes the pain as an extreme pressure. She reports the pain went into her arm as well. She reports shortness of breath, nausea without vomiting, and also diaphoresis. DIAGNOSTICS: EKG reveals ST elevation in inferior leads Chest xray: not available at time of examination Laboratory data: WBC 4.3. Hemoglobin 15.3. Platelet count 203. Sodium 141. Potassium 3.7. BUN 14. Creatinine 0.58. Magnesium 2.0. Troponin negative 1. Current home cardiac medications include none REVIEW OF SYSTEMS: At the time of my exam: CONSTITUTIONAL: Denies fever or chills. HEENT: Denies blurred vision, vision changes, or eye pain. Denies hemoptysis CARDIOVASCULAR: Reports chest pain. Denies orthopnea, PND or palpitations RESPIRATORY: Reports shortness of breath. GASTROINTESTINAL: Denies abdominal pain. Denies nausea or vomiting. HEMATOLOGIC: Denies bleeding disorders. GENITOURINARY: Denies any blood in urine. SKIN: Denies pruitis. Denies rash. PHYSICAL EXAM: VITAL SIGNS: Reviewed. GENERAL: Well-developed in mild acute distress. HEENT: Head is normocephalic. Pupils are equal, round. Sclerae anicteric. Mucous membranes of the mouth are moist. Neck supple. No JVD or thyromegaly LUNGS: Respirations even and unlabored. Lungs essentially clear to auscultation bilaterally. HEART: Regular rate and rhythm. S1 and S2 heard. ABDOMEN: Soft. Nondistended. Nontender. EXTREMITIES: Normal range of motion. No clubbing or cyanosis. Peripheral pulses intact. No lower extremity edema NEUROLOGIC: Awake and alert. Oriented x 3. ASSESSMENT: Acute inferior ST elevated myocardial infarction Asthma GERD Sleep apnea, no CPAP use Osteoarthritis PLAN: STEMI activated and patient examined in the ER. Patient advised to undergo emergent cardiac catheterization. Patient agreeable. She was transferred to the cleaner laboratory equipment in stable condition. Nurse practitioner note has been reviewed by physician. Signing provider agrees with the documented findings, assessment, and plan of care. 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 Hx of and current issue with eczema. History of Any Multi-Drug Resistant Organisms: None Reported Past Surgical History: Adenoidectomy, Appendectomy, Hysterectomy, Tonsillectomy, Tubal Ligation Additional Past Surgical History / Comment(s): Partial Hysterectomy, Colonoscopy, polyps removed. Past Anesthesia/Blood Transfusion Reactions: No Reported Reaction Additional Past Anesthesia/Blood Transfusion Reaction / Comment(s): Pt states she does not need much anesthesia, she reacts to it very easily. Past Psychological History: Anxiety Smoking Status: Never smoker Past Alcohol Use History: Rare Past Drug Use History: None Reported - Past Family History Mother Additional Family Medical History / Comment(s): TB Sister(s) Family Medical History: Cancer Medications and Allergies Home Medications Medication Instructions Recorded Confirmed Type LORazepam [Ativan] 0.5 mg PO TID PRN 08/06/19 09/27/20 History Dicyclomine [Bentyl] 20 mg PO TID 09/27/20 09/27/20 History Allergies Allergy/AdvReac Type Severity Reaction Status Date / Time erythromycin base Allergy Unknown Verified 09/27/20 12:25 latex Allergy Rash/Hives Verified 09/27/20 12:25 Penicillins Allergy Unknown Verified 09/27/20 12:25 tetracycline Allergy Unknown Verified 09/27/20 12:25 coconut AdvReac Nausea & Verified 09/27/20 12:25 Vomiting hydromorphone HCl AdvReac Hallucinati Verified 09/27/20 12:25 [From Dilaudid] ons iron AdvReac Unknown Verified 09/27/20 12:25 morphine AdvReac Hallucinati Verified 09/27/20 12:25 ons Physical Exam Vitals: Vital Signs Temp Pulse Pulse Resp BP Pulse Ox 09/27/20 11:32 92 09/27/20 11:29 97.9 F 82 24 134/86 96 09/27/20 11:25 97.9 F 80 24 130/80 96 Intake and Output 09/26/20 09/27/20 09/27/20 22:59 06:59 14:59 Intake Total 200 Balance 200 Intake: IV 200 Other: Weight 96.162 kg Results 09/27/20 11:29 09/27/20 11:29 Cardiac Enzymes 09/27/20 09/27/20 Range/Units 11:29 11:29 AST 39 H (14-36) U/L Troponin I <0.012 (0.000-0.034) ng/mL Coagulation 09/27/20 Range/Units 11:29 PT 9.9 (9.0-12.0) sec APTT 24.3 (22.0-30.0) sec CBC 09/27/20 Range/Units 11:29 WBC 4.3 (3.8-10.6) k/uL RBC 5.13 (3.80-5.40) m/uL Hgb 15.3 (11.4-16.0) gm/dL Hct 45.9 (34.0-46.0) % Plt Count 203 (150-450) k/uL Comprehensive Metabolic Panel 09/27/20 Range/Units 11:29 Sodium 141 (137-145) mmol/L Potassium 3.7 (3.5-5.1) mmol/L Chloride 110 H (98-107) mmol/L Carbon Dioxide 23 (22-30) mmol/L BUN 14 (7-17) mg/dL Creatinine 0.58 (0.52-1.04) mg/dL Glucose 144 H (74-99) mg/dL Calcium 8.8 (8.4-10.2) mg/dL AST 39 H (14-36) U/L ALT 42 H (4-34) U/L Alkaline Phosphatase 91 (38-126) U/L Total Protein 7.3 (6.3-8.2) g/dL Albumin 4.1 (3.5-5.0) g/dL Current Medications Generic Name Dose Route Start Last Admin Trade Name Freq PRN Reason Stop Dose Admin Aspirin 81 mg 09/28/20 09:00 Aspirin 81 Mg PO DAILY [facility] Atorvastatin Calcium 80 mg 09/27/20 21:00 Atorvastatin 80 Mg Tab PO HS [facility] Clopidogrel Bisulfate 75 mg 09/28/20 09:00 Clopidogrel 75 Mg Tab PO DAILY [facility] Heparin Sodium (Porcine) 0 unit 09/27/20 12:16 Heparin Sodium,Porcine 5,000 Unit/Ml 1 Ml Vial IV PER PROTOCOL PRN Low PTT Protocol Nitroglycerin/Dextrose 50 mg/ 250 mls @ 6 mls/hr 09/27/20 12:30 IV Solution IV .Q24H [facility] Protocol 20 MCG/MIN Heparin Sodium/Sodium Chloride 250 mls @ 10 mls/hr 09/27/20 14:30 25,000 unit/ Sodium Chloride IV .Q24H [facility] Protocol 10.399 UNITS/KG/HR Metoprolol Succinate 25 mg 09/27/20 12:15 Metoprolol Succinate (Er) 25 Mg Tab.Er.24h PO DAILY [facility] Naloxone HCl 0.2 mg 09/27/20 11:29 Naloxone 0.4 Mg/Ml 1 Ml Vial IV Q2M PRN Opioid Reversal Intake and Output 09/26/20 09/27/20 09/27/20 22:59 06:59 14:59 Intake Total 200 Balance 200 Intake: IV 200 Other: Weight 96.162 kg Patient Weight 09/28/20 06:59 Weight 96.162 kg 09/27/20 11:29 09/27/20 11:29
[2020-09-27 15:36] LABS: Glucose,Whole Blood 129 mg/dL (75-99)
[2020-09-27] MEDS: HEPARIN SOD,PORK IN 0.45% NACL 25,000 UNIT in 0.45% NACL 1 250ML.BAG IV SCH (15:54)
[2020-09-27] MEDS: NITROGLYCERIN-D5W PMX 50 MG in DEXTROSE/WATER 1 250ML.BAG IV SCH (15:56)
--- NOTE | 2020-09-27 16:25 | CC ---
CARDIAC CATHETERIZATION REPORT INDICATION: Acute inferior wall myocardial infarction. PROCEDURE NOTE: After obtaining informed consent, left heart catheterization and coronary angiogram were performed via the right femoral artery using standard Jania catheters. The patient tolerated the procedure well without any obvious immediate complications. Patient received moderate conscious sedation. Total sedation time was 15 minutes. A femoral angiogram was performed and Angio-Seal was deployed for hemostasis. FINDINGS: 1. HEMODYNAMICS: Central aortic pressure is 130/70 mm. Left ventricular end-diastolic pressure . 2. ANGIOGRAPHIC DATA: Left Main Coronary Artery: Left main coronary artery is a normal-sized vessel and is free of stenosis. Divides into left anterior descending coronary artery and circumflex coronary artery. LAD and its branches, circumflex coronary artery and its branches are free of significant stenosis. 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 There is a LOVE 2 to LOVE 3 flow into the distal RCA. We only gave one injection to the patient. 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 PLAN: Angiographic data was reviewed by Dr. Cox the on-call metal cabinet finisher who felt attempting angioplasty is high risk and advised medical therapy. I am going to start the patient on IV nitroglycerin, aspirin, Plavix, statins, beta alisa and we will start her on heparin in 2 hours from now. I discussed these issues at length with the patient. She understands and in agreement with the plan. JIM / COOKIE: [id number] /
[2020-09-27] MEDS: METOPROLOL SUCCINATE (ER) 25 MG TAB.ER.24H PO SCH (16:54)
[2020-09-27] MEDS: SODIUM CHLORIDE 0.9% 1,000 ML IV SCH (18:04)
[2020-09-27] MEDS: ATORVASTATIN 80 MG TAB PO SCH (20:23)
[2020-09-27] MEDS ORDERED: POTASSIUM CHLORIDE ER 20 MEQ TAB.ER PO SCH (21:00)
[2020-09-27] MEDS: ACETAMINOPHEN TAB 500 MG TAB PO PRN (22:30)
[2020-09-28 04:06] LABS: Basophils % (A) 0 %; Eosinophils # (A) 0.2 k/uL (0-0.7); Eosinophils % (A) 2 %; HCT 40.3 % (34.0-46.0); HGB 13.7 gm/dL (11.4-16.0); Lymphocytes # (A) 1.2 k/uL (1.0-4.8); Lymphocytes % (A) 14 %; MCH 30.5 pg (25.0-35.0); MCHC 33.9 g/dL (31.0-37.0); MCV 89.8 fL (80.0-100.0); Mean Platelet Volume 6.6; Monocytes # (A) 0.5 k/uL (0-1.0); Monocytes % (A) 6 %; Neutrophils # (A) 6.3 k/uL (1.3-7.7); Neutrophils % (A) 75 %; Platelet Count 180 k/uL (150-450); RBC 4.49 m/uL (3.80-5.40); RDW 12.5 % (11.5-15.5); WBC 8.3 k/uL (3.8-10.6)
[2020-09-28 04:46] LABS: African American GFR (CKD) >90 (>60 ml/min/1.73 sqM); Anion Gap 5 mmol/L; Blood Urea Nitrogen 14 mg/dL (7-17); Calcium 8.3 mg/dL (8.4-10.2); Carbon Dioxide 24 mmol/L (22-30); Chloride 109 mmol/L (98-107); Glucose 141 mg/dL (74-99); Non-African American GFR(CKD) >90 (>60 ml/min/1.73 sqM); Potassium 3.6 mmol/L (3.5-5.1); Sodium 138 mmol/L (137-145)
[2020-09-28] MEDS ORDERED: POTASSIUM CHLORIDE ER 20 MEQ TAB.ER PO SCH (06:00)
[2020-09-28] MEDS: ACETAMINOPHEN TAB 500 MG TAB PO PRN ×3 (06:23→19:51)
[2020-09-28] MEDS: ONDANSETRON 4 MG/2 ML VIAL IVP PRN ×2 (07:25→19:52)
--- NOTE | 2020-09-28 08:52 | P.HPIM ---
History of Present Illness H&P Date: 09/28/20 Chief Complaint: STEMI This is a history of physical 54-year-old white female. She states significant chest pain yesterday. They've been struggling because her lsizpa-sy-fdi has had health issues and the holiday season and also Covid pandemic. The patient was evaluated and found to have myocardial infarction in the emergency room. Cardiac catheterization was immediately done. Report reviewed. Appreciate cardiology input. Now the patient is seen postop day #1. She seems to be relatively stable. Review of Systems Constitutional: Denies chills, Denies fever Eyes: denies blurred vision, denies pain Ears, nose, mouth and throat: Denies headache, Denies sore throat Cardiovascular: Reports as per HPI, Reports chest pain, Reports decreased exercise tolerance, Reports dyspnea on exertion Respiratory: Denies cough Gastrointestinal: Denies abdominal pain, Denies diarrhea, Denies nausea, Denies vomiting Genitourinary: Denies dysuria, Denies hematuria Musculoskeletal: Denies myalgias Past Medical History Past Medical History: Asthma, Eye Disorder, GERD/Reflux, Memory Impairment, Osteoarthritis (OA), Pneumonia, Skin Disorder, Sleep Apnea/CPAP/BIPAP Additional Past Medical History / Comment(s): Hx migraines, seasonal allergies, bronchitis, no cpap, kidney stones, shingles, diverticulitis,frequent strep throat, pneumonia 1 yr ago, hx anemia, low BP, glaucoma right eye, 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 Hx of and current issue with eczema. History of Any Multi-Drug Resistant Organisms: None Reported Past Surgical History: Adenoidectomy, Appendectomy, Hysterectomy, Tonsillectomy, Tubal Ligation Additional Past Surgical History / Comment(s): Partial Hysterectomy, Colonoscopy, polyps removed. Past Anesthesia/Blood Transfusion Reactions: No Reported Reaction Additional Past Anesthesia/Blood Transfusion Reaction / Comment(s): Pt states she does not need much anesthesia, she reacts to it very easily. Past Psychological History: Anxiety Smoking Status: Never smoker Past Alcohol Use History: Rare Past Drug Use History: None Reported - Past Family History Mother Additional Family Medical History / Comment(s): TB Sister(s) Family Medical History: Cancer Medications and Allergies Home Medications Medication Instructions Recorded Confirmed Type LORazepam [Ativan] 0.5 mg PO TID PRN 08/06/19 09/27/20 History Dicyclomine [Bentyl] 20 mg PO TID 09/27/20 09/27/20 History Allergies Allergy/AdvReac Type Severity Reaction Status Date / Time erythromycin base Allergy Unknown Verified 09/27/20 12:25 latex Allergy Rash/Hives Verified 09/27/20 12:25 Penicillins Allergy Unknown Verified 09/27/20 12:25 tetracycline Allergy Unknown Verified 09/27/20 12:25 coconut AdvReac Nausea & Verified 09/27/20 12:25 Vomiting hydromorphone HCl AdvReac Hallucinati Verified 09/27/20 12:25 [From Dilaudid] ons iron AdvReac Unknown Verified 09/27/20 12:25 morphine AdvReac Hallucinati Verified 09/27/20 12:25 ons Physical Exam Vitals: Vital Signs Temp Pulse Pulse Resp BP BP Pulse Ox 09/28/20 08:00 98.2 F 68 16 104/74 93 L 09/28/20 07:00 69 18 114/78 96 09/28/20 06:00 65 12 105/65 95 09/28/20 05:00 80 25 H 97/63 91 L 09/28/20 04:00 98.3 F 67 14 95/62 93 L 09/28/20 03:00 66 11 L 95/62 95 09/28/20 02:00 70 13 95 09/28/20 01:00 71 17 91 L 09/28/20 00:00 98.0 F 67 19 110/67 94 L 09/27/20 23:23 69 18 115/78 91 L 09/27/20 23:00 64 14 115/78 91 L 09/27/20 22:00 68 18 115/78 95 09/27/20 21:00 62 14 115/78 95 09/27/20 20:00 97.8 F 76 13 115/78 93 L 09/27/20 19:00 63 16 117/81 96 09/27/20 18:00 66 18 120/86 96 09/27/20 17:00 70 18 122/82 94 L 09/27/20 16:00 98.7 F 74 19 128/84 98 09/27/20 15:40 98.7 F 68 14 118/76 96 09/27/20 14:44 65 116/74 96 09/27/20 14:13 66 125/75 98 09/27/20 13:48 75 16 122/77 98 09/27/20 11:32 92 09/27/20 11:29 97.9 F 82 24 134/86 96 09/27/20 11:25 97.9 F 80 24 130/80 96 Intake and Output 09/27/20 09/28/20 09/28/20 22:59 06:59 14:59 Intake Total 187.333 283.375 171.290 Output Total 300 150 0 Balance -112.667 133.375 171.290 Intake: IV 60 160 40 Sodium Chloride 0.9% 1, 60 160 40 000 ml @ 20 mls/hr IV . Q24H [facility] Rx#:[id number] Intake, IV Titration 127.333 123.375 131.290 Amount Heparin Sod,Pork in 0.45% 65.833 121.615 NaCl 25,000 unit In 0.45 % NaCl 1 250ml.bag @ 10. 399 UNITS/KG/HR 10 mls/hr IV .Q24H [facility] Rx#: [id number] Nitroglycerin-D5w Pmx 50 21.5 123.375 9.675 mg In Dextrose/Water 1 250ml.bag @ 20 MCG/MIN 6 mls/hr IV .Q24H [facility] Rx#: [id number] Sodium Chloride 0.9% 1, 40 000 ml @ 20 mls/hr IV . Q24H [facility] Rx#:[id number] Output: Urine 300 150 0 Other: Voiding Method Bedpan Bedpan Bedpan # Voids 1 1 1 Weight 96.5 kg - Constitutional General appearance: no acute distress - Neck Neck: no lymphadenopathy - Respiratory Respiratory: bilateral: CTA - Cardiovascular Rhythm: regular Heart sounds: normal: S1, S2 Abnormal Heart Sounds: no S3 Gallop - Gastrointestinal General gastrointestinal: soft, no tenderness - Integumentary Integumentary: no cellulitis - Neurologic Neurologic: CNII-XII intact - Psychiatric Psychiatric: A&O x's 3, appropriate affect Results CBC & Chem 7: 09/28/20 03:40 09/28/20 03:40 Labs: Abnormal Lab Results - Last 24 Hours (Table) 09/27/20 09/27/20 09/27/20 Range/Units 11:29 11:29 15:34 APTT (22.0-30.0) sec Chloride 110 H (98-107) mmol/L Glucose 144 H (74-99) mg/dL POC Glucose (mg/dL) 129 H (75-99) mg/dL Calcium (8.4-10.2) mg/dL AST 39 H (14-36) U/L ALT 42 H (4-34) U/L Troponin I (0.000-0.034) ng/mL Cholesterol 251 H (<200) mg/dL LDL Cholesterol, Calc 188 H (0-99) mg/dL 09/27/20 09/27/20 09/27/20 Range/Units 16:13 21:27 21:27 APTT 42.3 H (22.0-30.0) sec Chloride (98-107) mmol/L Glucose (74-99) mg/dL POC Glucose (mg/dL) (75-99) mg/dL Calcium (8.4-10.2) mg/dL AST (14-36) U/L ALT (4-34) U/L Troponin I 0.643 H* 1.700 H* (0.000-0.034) ng/mL Cholesterol (<200) mg/dL LDL Cholesterol, Calc (0-99) mg/dL 09/28/20 09/28/20 09/28/20 Range/Units 03:40 03:40 07:11 APTT 73.5 H (22.0-30.0) sec Chloride 109 H (98-107) mmol/L Glucose 141 H (74-99) mg/dL POC Glucose (mg/dL) (75-99) mg/dL Calcium 8.3 L (8.4-10.2) mg/dL AST (14-36) U/L ALT (4-34) U/L Troponin I 2.840 H* (0.000-0.034) ng/mL Cholesterol (<200) mg/dL LDL Cholesterol, Calc (0-99) mg/dL Thrombosis Risk Factor Assmnt - Choose All That Apply Any of the Below Risk Factors Present?: Yes Each Factor Represents 1 point: Acute [place], Hx of IBD, Obesity (BMI >25) Other Risk Factors: No Thrombosis Risk Factor Assessment Total Risk Factor Score: 3 Thrombosis Risk Factor Assessment Level: Moderate Risk Assessment and Plan (1) ST elevation myocardial infarction (STEMI) Current Visit: Yes Status: Acute Code(s): I21.3 - ST ELEVATION (STEMI) MYOCARDIAL INFARCTION OF [facility] SITE SNOMED Code(s): 89141988 Plan: Continue standard postop protocol. We'll continue to follow with cardiology. Check CBC and CMP in a.m. Dr. Courtney's group will be covering for me after today. Time with Patient: Greater than 30
--- NOTE | 2020-09-28 10:18 | PN ---
PROGRESS NOTE This is a 54-year-old lady that presented to hospital with acute inferior wall myocardial infarction, underwent cardiac catheterization that revealed spontaneous dissection of the right coronary artery that we opted to manage with aggressive medical therapy. This morning patient is doing much better. The EKG does not show any ST-segment elevation and there are no acute Q-waves. Her peak troponin was only 2.8. She is on IV heparin, IV nitroglycerin, aspirin, Plavix and statins. She still has mild chest discomfort that is mostly reproducible and has some arm pain, but she states that she is much better compared to the way she was when she first came. On exam, afebrile. Heart rate is 68 beats per minute. Blood pressure is 93/75. Respiratory rate is 18. O2 saturation is 94% on 2 L. There is no jugular venous distention. Carotid upstroke is diminished. There is no bruit. Chest exam reveals good air entry bilaterally. Heart exam reveals first and second heart sounds. No gallop. Abdomen is soft. Exam of extremities did not reveal any edema. Her right groin is free of bleeding, bruit, hematoma. Foot pulses are intact. LABS: Labs show a hemoglobin of 13.7, platelet count is 180. Potassium is 3.6. Creatinine is 0.5. ASSESSMENT: Acute inferior wall myocardial infarction secondary to spontaneous dissection of the right coronary artery. The patient is doing well with aggressive medical therapy. We will transfer her out of ICU. JIM / COOKIE: [id number] /
[2020-09-28] MEDS: ASPIRIN 81 MG PO SCH (10:20)
[2020-09-28] MEDS: CLOPIDOGREL 75 MG TAB PO SCH (10:20)
[2020-09-28] MEDS: METOPROLOL SUCCINATE (ER) 25 MG TAB.ER.24H PO SCH (10:21)
[2020-09-28] MEDS: NITROGLYCERIN-D5W PMX 50 MG in DEXTROSE/WATER 1 250ML.BAG IV SCH (10:23)
[2020-09-28] MEDS: HEPARIN SOD,PORK IN 0.45% NACL 25,000 UNIT in 0.45% NACL 1 250ML.BAG IV SCH (10:26)
--- NOTE | 2020-09-28 10:50 | ECHOF ---
Referral Reason:LV function, STEMI MEASUREMENTS -------- HEIGHT: 152.4 cm WEIGHT: 96.2 kg BP: IVSd: 1.0 cm (0.6 - 1.1) LVIDd: 4.9 cm (3.9 - 5.3) LVPWd: 1.1 cm (0.6 - 1.1) IVSs: 1.2 cm LVIDs: 3.9 cm LVPWs: 1.5 cm Ao Diam: 2.9 cm (2.0 - 3.7) AV Cusp: 1.8 cm (1.5 - 2.6) LA Diam: 4.0 cm (2.7 - 3.8) MV EXCURSION: 19.604 mm (> 18.000) MV EF SLOPE: 131 mm/s (70 - 150) EPSS: 0.5 cm MV E Spencer: 0.39 m/s MV DecT: 170 ms MV A Spencer: 0.63 m/s MV E/A Ratio: 0.62 RAP: 5.00 mmHg RVSP: 27.54 mmHg FINDINGS -------- Sinus rhythm. This was a techncally difficult study with suboptimal views, , Lumason utilized for enhancement of im ages. The left ventricular size is normal. There is mild concentric left ventricular hypertrophy. Overa ll left ventricular systolic function is low-normal with, an EF between 50 - 55 %. The right ventricle is normal in size. The left atrial size is normal. The right atrial size is normal. The aortic valve is trileaflet, and appears structurally normal. No aortic stenosis or regurgitation. Mild mitral regurgitation is present. Mild tricuspid regurgitation present. Right ventricular systolic pressure is normal at < 35 mmHg. There is no pulmonic regurgitation present. The aortic root size is normal. There is no pericardial effusion. CONCLUSIONS -------- 1. This was a techncally difficult study with suboptimal views, , Lumason utilized for enhancement of images. 2. The left ventricular size is normal. 3. There is mild concentric left ventricular hypertrophy. 4. Overall left ventricular systolic function is low-normal with, an EF between 50 - 55 %. 5. The right ventricle is normal in size. 6. The left atrial size is normal. 7. The right atrial size is normal. 8. Mild tricuspid regurgitation present. 9. There is no pulmonic regurgitation present. 10. The aortic root size is normal. 11. There is no pericardial effusion. NEWSPAPER DELIVERY COUNSELOR: Maame Salcido RDCS
[2020-09-28] MEDS: ATORVASTATIN 80 MG TAB PO SCH (20:04)
[2020-09-28] MEDS: SODIUM CHLORIDE 0.9% 1,000 ML IV SCH (20:04)
[2020-09-28] MEDS ORDERED: traMADol 50 MG TAB PO PRN (22:00)
[2020-09-28] MEDS ORDERED: LORazepam 0.5 MG TAB PO SCH (22:00)
[2020-09-28] MEDS: traMADol 50 MG TAB PO PRN (22:47)
[2020-09-29] MEDS: ONDANSETRON 4 MG/2 ML VIAL IVP PRN ×3 (03:35→16:05)
[2020-09-29 08:19] LABS: Basophils % (A) 1 %; Eosinophils # (A) 0.2 k/uL (0-0.7); Eosinophils % (A) 4 %; HCT 39.9 % (34.0-46.0); HGB 13.3 gm/dL (11.4-16.0); Lymphocytes % (A) 18 %; MCH 30.6 pg (25.0-35.0); MCHC 33.3 g/dL (31.0-37.0); MCV 91.9 fL (80.0-100.0); Monocytes # (A) 0.4 k/uL (0-1.0); Monocytes % (A) 7 %; Neutrophils # (A) 3.7 k/uL (1.3-7.7); Neutrophils % (A) 68 %; Platelet Count 161 k/uL (150-450); RBC 4.34 m/uL (3.80-5.40); RDW 12.7 % (11.5-15.5); WBC 5.5 k/uL (3.8-10.6)
[2020-09-29 08:38] LABS: African American GFR (CKD) >90 (>60 ml/min/1.73 sqM); Anion Gap 4 mmol/L; Blood Urea Nitrogen 12 mg/dL (7-17); Calcium 8.2 mg/dL (8.4-10.2); Carbon Dioxide 22 mmol/L (22-30); Chloride 111 mmol/L (98-107); Glucose 123 mg/dL (74-99); Non-African American GFR(CKD) >90 (>60 ml/min/1.73 sqM); Potassium 3.8 mmol/L (3.5-5.1); Sodium 137 mmol/L (137-145)
[2020-09-29] MEDS ORDERED: HEPARIN SODIUM,PORCINE 5,000 UNIT/ML 1 ML VIAL IV PRN (09:26)
[2020-09-29] MEDS: LORazepam 0.5 MG TAB PO PRN (09:33)
[2020-09-29] MEDS: NITROGLYCERIN OINT 1 INCH/GM PACKET TOPICAL SCH ×4 (09:34→22:57)
[2020-09-29] MEDS: CLOPIDOGREL 75 MG TAB PO SCH (09:34)
[2020-09-29] MEDS: METOPROLOL SUCCINATE (ER) 25 MG TAB.ER.24H PO SCH (09:44)
[2020-09-29] MEDS: HEPARIN SOD,PORK IN 0.45% NACL 25,000 UNIT in 0.45% NACL 1 250ML.BAG IV SCH ×2 (09:45→17:36)
[2020-09-29] MEDS: ASPIRIN 81 MG PO SCH (09:45)
--- NOTE | 2020-09-29 12:04 | P.PN ---
Subjective Progress Note Date: 09/29/20 CHIEF COMPLAINT: Chest pain HISTORY OF PRESENT ILLNESS: 09/27/2020 This is a 54 year old female with a past medical history significant for asthma, GERD, osteoarthritis, sleep apnea without CPAP use, and migraines. Patient does not follow with a graduate research assistant. We have been asked to see the patient in consultation for STEMI. Patient presented via EMS. Patient examined at the bedside in the emergency room. Patient reports she began having chest pain about an hour prior to coming to the hospital. She describes the pain as an extreme pressure. She reports the pain went into her arm as well. She reports shortness of breath, nausea without vomiting, and also diaphoresis. 09/29/2020 Patient has been transferred out of the ICU to the cardiac stepdown unit. She is status post cardiac catheterization revealing spontaneous dissection involving the right coronary artery. She remains on IV heparin. Patient was complaining of a significant headache this morning along with nausea and vomiting overnight. Her IV nitro was discontinued. Shortly after, patient began having some chest discomfort along with some anxiety. Echocardiogram revealed ejection fraction 50-55% and mild tricuspid regurgitation PHYSICAL EXAM: VITAL SIGNS: Reviewed. GENERAL: Well-developed in mild acute distress. HEENT: Head is normocephalic. Pupils are equal, round. Sclerae anicteric. Mucous membranes of the mouth are moist. Neck supple. No JVD or thyromegaly LUNGS: Respirations even and unlabored. Lungs essentially clear to auscultation bilaterally. HEART: Regular rate and rhythm. S1 and S2 heard. EXTREMITIES: Normal range of motion. No clubbing or cyanosis. Peripheral pulses intact. No lower extremity edema. Right groin cath site soft with no hematoma noted. Pulse present. ASSESSMENT: Acute inferior ST elevated myocardial infarction secondary to spontaneous dissection of right coronary artery Asthma GERD Sleep apnea, no CPAP use Osteoarthritis PLAN: Continue IV heparin IV nitro discontinued due to headache. Will trial nitro paste Q6 hours to see if patient can tolerate. Continue ativan for anxiety Continue additional cardiac medications Further recommendations pending patient course Nurse practitioner note has been reviewed by physician. Signing provider agrees with the documented findings, assessment, and plan of care. Objective - Vital Signs Vital signs: Vital Signs Temp 97.6 F 09/29/20 09:19 Pulse 66 09/29/20 09:19 Resp 20 09/29/20 09:19 BP 150/90 09/29/20 09:19 Pulse Ox 96 09/29/20 09:19 Intake & Output 09/28/20 09/29/20 09/29/20 18:59 06:59 18:59 Intake Total 600.733 710 90.167 Output Total 0 Balance 600.733 710 90.167 Weight 98 kg Intake: IV 120 10 Invasive Line 2 10 Sodium Chloride 0.9% 1, 120 000 ml @ 20 mls/hr IV . Q24H [facility] Rx#:[id number] Intake, IV Titration 240.733 160 0.167 Amount Heparin Sod,Pork in 0.45% 0.167 NaCl 25,000 unit In 0.45 % NaCl 1 250ml.bag @ 10. 204 UNITS/KG/HR 10 mls/hr IV .Q24H [facility] Rx#: [id number] Heparin Sod,Pork in 0.45% 197.058 NaCl 25,000 unit In 0.45 % NaCl 1 250ml.bag @ 10. 399 UNITS/KG/HR 10 mls/hr IV .Q24H [facility] Rx#: [id number] Nitroglycerin-D5w Pmx 50 43.675 mg In Dextrose/Water 1 250ml.bag @ 20 MCG/MIN 6 mls/hr IV .Q24H [facility] Rx#: [id number] Sodium Chloride 0.9% 1, 160 000 ml @ 20 mls/hr IV . Q24H [facility] Rx#:[id number] Oral 240 540 90 Output: Urine 0 Other: Voiding Method Bedpan Toilet # Voids 0 3 0 # Bowel Movements 1 - Labs CBC & Chem 7: 09/29/20 07:40 09/29/20 07:40 Labs: Abnormal Lab Results - Last 24 Hours (Table) 09/28/20 09/28/20 09/29/20 Range/Units 15:31 22:40 07:40 APTT 66.7 H 52.2 H (22.0-30.0) sec Chloride 111 H (98-107) mmol/L Glucose 123 H (74-99) mg/dL Calcium 8.2 L (8.4-10.2) mg/dL 09/29/20 Range/Units 07:40 APTT 50.4 H (22.0-30.0) sec Chloride (98-107) mmol/L Glucose (74-99) mg/dL Calcium (8.4-10.2) mg/dL
--- NOTE | 2020-09-29 12:37 | P.PN ---
Subjective This is a pleasant 54 years old female with multiple medical problems including gastroesophageal reflux disease, asthma, memory impairment, osteoarthritis, sleep apnea on CPAP/BiPAP, migraine. History of kidney stone and diverticulitis. She is a patient of Dr. Rodriguez. Presents because of chest pain. 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 This morning patient was complaining of from chest pain about 5/10 in severity. Also she had some epigastric discomfort, feeling nausea but no vomiting and she had some hard bowel movements once yesterday. Echocardiogram showed ejection fraction of 50-55% with no wall motion abnormality significant valvular disease CONSTITUTIONAL: No fever, no malaise, no fatigue. HEENT: No recent visual problems or hearing problems. Denied any sore throat. CARDIOVASCULAR: No orthopnea, PND, no palpitations, no syncope. PULMONARY: No shortness of breath, no cough, no hemoptysis. GASTROINTESTINAL: No diarrhea, no nausea, no vomiting, no abdominal pain. Normoactive bowel sounds. NEUROLOGICAL: No headaches, no weakness, no numbness. Active Medications Generic Name Dose Route Start Last Admin Trade Name Freq PRN Reason Stop Dose Admin Acetaminophen 1,000 mg 09/27/20 17:57 09/28/20 19:51 Acetaminophen Tab 500 Mg Tab PO 1,000 mg Q6HR PRN Administration Fever and/ or Pain Aspirin 81 mg 09/28/20 09:00 09/29/20 09:45 Aspirin 81 Mg PO 81 mg DAILY [facility] Administration Atorvastatin Calcium 80 mg 09/27/20 21:00 09/28/20 20:04 Atorvastatin 80 Mg Tab PO 80 mg HS [facility]SA Administration Clopidogrel Bisulfate 75 mg 09/28/20 09:00 09/29/20 09:34 Clopidogrel 75 Mg Tab PO 75 mg DAILY [facility] Administration Heparin Sodium (Porcine) 0 unit 09/27/20 12:16 Heparin Sodium,Porcine 5,000 Unit/Ml 1 Ml Vial IV PER PROTOCOL PRN Low PTT Protocol Heparin Sodium (Porcine) 5,000 unit 09/29/20 16:00 Heparin Sodium,Porcine 5,000 Unit/Ml 1 Ml Vial SQ Q8HR [facility] Heparin Sodium (Porcine) 0 unit 09/29/20 09:26 Heparin Sodium,Porcine 5,000 Unit/Ml 1 Ml Vial IV PER PROTOCOL PRN Low PTT Protocol Sodium Chloride 1,000 mls @ 20 mls/hr 09/27/20 18:00 09/28/20 20:04 Saline 0.9% IV 20 mls/hr .Q24H ELSA Administration Heparin Sodium/Sodium Chloride 250 mls @ 10 mls/hr 09/29/20 09:30 09/29/20 09:46 25,000 unit/ Sodium Chloride IV 8.14 units/kg/hr .Q24H [facility] 7.98 mls/hr Titration Protocol 10.204 UNITS/KG/HR Lorazepam 0.5 mg 09/28/20 22:02 09/29/20 09:33 Lorazepam 0.5 Mg Tab PO 0.5 mg QID PRN Administration Anxiety Metoprolol Succinate 25 mg 09/27/20 12:15 09/29/20 09:44 Metoprolol Succinate (Er) 25 Mg Tab.Er.24h PO 25 mg DAILY [facility] Administration Naloxone HCl 0.2 mg 09/27/20 11:29 Naloxone 0.4 Mg/Ml 1 Ml Vial IV Q2M PRN Opioid Reversal Nitroglycerin 0.5 inch 09/29/20 09:27 09/29/20 12:36 Nitroglycerin Oint 1 Inch/Gm Packet TOPICAL 0.5 inch Q6HR [facility] Administration Ondansetron HCl 4 mg 09/28/20 07:13 09/29/20 09:33 Ondansetron 4 Mg/2 Ml Vial IVP 4 mg Q6HR PRN Administration Nausea And Vomiting Pantoprazole Sodium 40 mg 09/29/20 12:45 Pantoprazole 40 Mg/10 Ml Vial IVP DAILY [facility] Tramadol HCl 50 mg 09/28/20 22:00 09/29/20 09:33 Tramadol 50 Mg Tab PO 50 mg QID PRN Administration Mild to Moderate Pain Tramadol HCl 100 mg 09/28/20 22:00 09/28/20 22:47 Tramadol 50 Mg Tab PO 100 mg QID PRN Administration Moderate to Severe Pain Objective - Vital Signs Vital signs: Vital Signs Temp 97.6 F 09/29/20 09:19 Pulse 66 09/29/20 09:20 Resp 20 09/29/20 09:20 BP 150/90 09/29/20 09:19 Pulse Ox 96 09/29/20 09:19 Intake & Output 09/28/20 09/29/2020 18:59 06:59 18:59 Intake Total 600.733 710 90.167 Output Total 0 Balance 600.733 710 90.167 Weight 98 kg Intake: IV 120 10 Invasive Line 2 10 Sodium Chloride 0.9% 1, 120 000 ml @ 20 mls/hr IV . Q24H [facility] Rx#:[id number] Intake, IV Titration 240.733 160 0.167 Amount Heparin Sod,Pork in 0.45% 0.167 NaCl 25,000 unit In 0.45 % NaCl 1 250ml.bag @ 10. 204 UNITS/KG/HR 10 mls/hr IV .Q24H [facility] Rx#: [id number] Heparin Sod,Pork in 0.45% 197.058 NaCl 25,000 unit In 0.45 % NaCl 1 250ml.bag @ 10. 399 UNITS/KG/HR 10 mls/hr IV .Q24H [facility] Rx#: [id number] Nitroglycerin-D5w Pmx 50 43.675 mg In Dextrose/Water 1 250ml.bag @ 20 MCG/MIN 6 mls/hr IV .Q24H [facility] Rx#: [id number] Sodium Chloride 0.9% 1, 160 000 ml @ 20 mls/hr IV . Q24H [facility] Rx#:[id number] Oral 240 540 90 Output: Urine 0 Other: Voiding Method Bedpan Toilet Toilet # Voids 0 3 0 # Bowel Movements 1 - Exam GENERAL: The patient is alert and oriented x3, not in any acute distress. Well developed, well nourished. HEENT: Pupils are round and equally reacting to light. EOMI. No scleral icterus. No conjunctival pallor. Normocephalic, atraumatic. No pharyngeal erythema. No thyromegaly. CARDIOVASCULAR: S1 and S2 present. No murmurs, rubs, or gallops. PULMONARY: Chest is clear to auscultation, no wheezing or crackles. ABDOMEN: Soft, nontender, nondistended, normoactive bowel sounds. No palpable organomegaly. MUSCULOSKELETAL: No joint swelling or deformity. EXTREMITIES: No cyanosis, clubbing, or pedal edema. NEUROLOGICAL: Gross neurological examination did not reveal any focal deficits. SKIN: No rashes. no petechiae. - Labs CBC & Chem 7: 09/29/20 07:40 09/29/20 07:40 Labs: Abnormal Lab Results - Last 24 Hours (Table) 09/28/20 09/28/20 09/29/20 Range/Units 15:31 22:40 07:40 APTT 66.7 H 52.2 H (22.0-30.0) sec Chloride 111 H (98-107) mmol/L Glucose 123 H (74-99) mg/dL Calcium 8.2 L (8.4-10.2) mg/dL 09/29/20 Range/Units 07:40 APTT 50.4 H (22.0-30.0) sec Chloride (98-107) mmol/L Glucose (74-99) mg/dL Calcium (8.4-10.2) mg/dL Assessment and Plan Assessment: Chest pain secondary to acute inferior STEMI secondary to spontaneous dissection of the right coronary artery History of asthma, not an active issue History of GERD, not an active issue Osteoarthritis Sleep apnea, not on CPAP Plan: This is a pleasant 54 years old female who presents with STEMI secondary to dissection of the RCA. No intervention recommended by safety investigator/cause analyst, otherwise the recommended maximum medical management. Heparin drip is her surgery today per Robb's team recommendation review of her ongoing chest pain. Continue with aspirin and Plavix as well. Also check abdominal x-ray. Continue with Zofran and stool laxative. Add Protonix for GI prophylaxis Labs and medication were reviewed.. Continue same treatment. Continue with symptomatic treatment. Resume home medication. Monitor lytes and vitals. DVT and GI prophylaxis. Further recommendationsas per clinical course of the patient DVT prophylaxis: heparin GI Prophylaxis: Ppi Prognosis is guarded
--- NOTE | 2020-09-29 13:20 | XR ---
EXAM: XR Abdomen, 1 View CLINICAL HISTORY: ITS.REASON XR Reason: epigastric pain TECHNIQUE: Frontal supine view of the abdomen/pelvis. COMPARISON: Abdominal radiographs on 03/02/2020 FINDINGS: Gastrointestinal tract: Nonobstructive bowel gas pattern. No dilation. No free air. Bones/joints: Mild degenerative changes of the heads and spine. IMPRESSION: Nonobstructive bowel gas pattern.
[2020-09-29] MEDS ORDERED: HEPARIN SODIUM,PORCINE 5,000 UNIT/ML 1 ML VIAL SQ SCH (16:00)
[2020-09-29] MEDS: PANTOPRAZOLE 40 MG/10 ML VIAL IVP SCH (16:05)
[2020-09-29] MEDS: SODIUM CHLORIDE 0.9% 1,000 ML IV SCH (20:05)
[2020-09-29] MEDS: ATORVASTATIN 80 MG TAB PO SCH (20:12)
[2020-09-29] MEDS: ACETAMINOPHEN TAB 500 MG TAB PO PRN (21:59)
[2020-09-30] MEDS: NITROGLYCERIN OINT 1 INCH/GM PACKET TOPICAL SCH ×4 (05:44→23:54)
[2020-09-30 07:49] LABS: Basophils % (A) 0 %; Eosinophils # (A) 0.3 k/uL (0-0.7); Eosinophils % (A) 4 %; HCT 39.7 % (34.0-46.0); HGB 13.8 gm/dL (11.4-16.0); Lymphocytes # (A) 1.1 k/uL (1.0-4.8); Lymphocytes % (A) 13 %; MCH 31.2 pg (25.0-35.0); MCHC 34.7 g/dL (31.0-37.0); Mean Platelet Volume 6.9; Monocytes # (A) 0.5 k/uL (0-1.0); Monocytes % (A) 5 %; Neutrophils # (A) 6.5 k/uL (1.3-7.7); Neutrophils % (A) 76 %; Platelet Count 183 k/uL (150-450); RBC 4.41 m/uL (3.80-5.40); RDW 12.6 % (11.5-15.5); WBC 8.5 k/uL (3.8-10.6)
[2020-09-30 08:07] LABS: African American GFR (CKD) >90 (>60 ml/min/1.73 sqM); Anion Gap 6 mmol/L; Blood Urea Nitrogen 9 mg/dL (7-17); Calcium 8.3 mg/dL (8.4-10.2); Carbon Dioxide 25 mmol/L (22-30); Chloride 105 mmol/L (98-107); Glucose 111 mg/dL (74-99); Non-African American GFR(CKD) >90 (>60 ml/min/1.73 sqM); Potassium 3.3 mmol/L (3.5-5.1); Sodium 136 mmol/L (137-145)
[2020-09-30] MEDS ORDERED: Potassium Replacement Protocol 1 EACH MISC MISCELLANE PRN ×3 (08:46→19:27)
[2020-09-30] MEDS ORDERED: ISOSORBIDE MONONITRATE ER 30 MG TAB.ER.24H PO SCH (09:00)
[2020-09-30] MEDS: PANTOPRAZOLE 40 MG/10 ML VIAL IVP SCH (09:17)
[2020-09-30] MEDS: METOPROLOL SUCCINATE (ER) 25 MG TAB.ER.24H PO SCH (09:17)
[2020-09-30] MEDS: CLOPIDOGREL 75 MG TAB PO SCH (09:17)
[2020-09-30] MEDS: ASPIRIN 81 MG PO SCH (09:17)
[2020-09-30] MEDS: POTASSIUM CHLORIDE ER 20 MEQ TAB.ER PO SCH ×4 (09:17→22:25)
[2020-09-30] MEDS ORDERED: NITROGLYCERIN SL TABS 0.4 MG TAB SUBLINGUAL ONE (09:54)
[2020-09-30] MEDS ORDERED: HEPARIN SODIUM,PORCINE 5,000 UNIT/ML 1 ML VIAL IV PRN (09:58)
[2020-09-30] MEDS: HEPARIN SOD,PORK IN 0.45% NACL 25,000 UNIT in 0.45% NACL 1 250ML.BAG IV SCH (10:19)
[2020-09-30] MEDS: LORazepam 0.5 MG TAB PO PRN ×3 (10:32→21:45)
--- NOTE | 2020-09-30 11:07 | P.PN ---
Subjective Progress Note Date: 09/30/20 CHIEF COMPLAINT: Chest pain HISTORY OF PRESENT ILLNESS: 09/27/2020 This is a 54 year old female with a past medical history significant for asthma, GERD, osteoarthritis, sleep apnea without CPAP use, and migraines. Patient does not follow with a pie baker. We have been asked to see the patient in consultation for STEMI. Patient presented via EMS. Patient examined at the bedside in the emergency room. Patient reports she began having chest pain about an hour prior to coming to the hospital. She describes the pain as an extreme pressure. She reports the pain went into her arm as well. She reports shortness of breath, nausea without vomiting, and also diaphoresis. 09/29/2020 Patient has been transferred out of the ICU to the cardiac stepdown unit. She is status post cardiac catheterization revealing spontaneous dissection involving the right coronary artery. She remains on IV heparin. Patient was complaining of a significant headache this morning along with nausea and vomiting overnight. Her IV nitro was discontinued. Shortly after, patient began having some chest discomfort along with some anxiety. Echocardiogram revealed ejection fraction 50-55% and mild tricuspid regurgitation 09/30/2020 Patient examined this morning the bedside. Patient denied any chest pain or pressure. Denies shortness of breath. She complained of some abdominal pain. She underwent KUB x-ray yesterday which was unremarkable. The patient was transitioned to Nitropaste yesterday. She denies having a headache. She remains on IV heparin. Orders were placed to discontinue the IV heparin this morning and transition the patient over to oral nitrates an attempt to discharge the patient home this afternoon. However shortly after IV heparin was discon tinued the patient began complaining of chest pain 10 out of 10. EKG was obtained and reviewed by Dr. Love. IV heparin was reordered along with Nitropaste. PHYSICAL EXAM: VITAL SIGNS: Reviewed. GENERAL: Well-developed in mild acute distress. HEENT: Head is normocephalic. Pupils are equal, round. Sclerae anicteric. Mucous membranes of the mouth are moist. Neck supple. No JVD or thyromegaly LUNGS: Respirations even and unlabored. Lungs essentially clear to auscultation bilaterally. HEART: Regular rate and rhythm. S1 and S2 heard. EXTREMITIES: Normal range of motion. No clubbing or cyanosis. Peripheral pulses intact. No lower extremity edema. Right groin cath site soft with no hematoma noted. Pulse present. ASSESSMENT: Acute inferior ST elevated myocardial infarction secondary to spontaneous dissection of right coronary artery Asthma GERD Sleep apnea, no CPAP use Osteoarthritis Hypokalemia PLAN: Continue IV heparin Continue nitro paste Continue ativan for anxiety Replace potassium Continue additional cardiac medications Hold discharge today. Will re-evaluate tomorrow Nurse practitioner note has been reviewed by physician. Signing provider agrees with the documented findings, assessment, and plan of care. Objective - Vital Signs Vital signs: Vital Signs Temp 98.5 F 09/30/20 08:00 Pulse 71 09/30/20 10:05 Resp 20 09/30/20 09:45 BP 139/83 09/30/20 10:05 Pulse Ox 98 09/30/20 10:05 Intake & Output 09/29/20 09/30/20 09/30/20 18:59 06:59 18:59 Intake Total 152.677 660 Output Total 0 Balance 152.677 660 Weight 90.5 kg Intake: Intake, IV Titration 62.677 Amount Heparin Sod,Pork in 0.45% 62.677 NaCl 25,000 unit In 0.45 % NaCl 1 250ml.bag @ 10. 204 UNITS/KG/HR 10 mls/hr IV .Q24H [facility] Rx#: [id number] Oral 90 660 Output: Urine 0 Other: Voiding Method Toilet Toilet # Voids 1 1 1 - Labs CBC & Chem 7: 09/30/20 06:53 09/30/20 06:53 Labs: Abnormal Lab Results - Last 24 Hours (Table) 09/29/20 09/29/20 09/30/20 Range/Units 16:44 22:30 06:53 APTT 35.9 H 62.7 H (22.0-30.0) sec Sodium 136 L (137-145) mmol/L Potassium 3.3 L (3.5-5.1) mmol/L Glucose 111 H (74-99) mg/dL Calcium 8.3 L (8.4-10.2) mg/dL 09/30/20 Range/Units 06:53 APTT 46.4 H (22.0-30.0) sec Sodium (137-145) mmol/L Potassium (3.5-5.1) mmol/L Glucose (74-99) mg/dL Calcium (8.4-10.2) mg/dL
--- NOTE | 2020-09-30 12:28 | P.PN ---
Subjective This is a pleasant 54 years old female with multiple medical problems including gastroesophageal reflux disease, asthma, memory impairment, osteoarthritis, sleep apnea on CPAP/BiPAP, migraine. History of kidney stone and diverticulitis. She is a patient of Dr. Rodriguez. Presents because of chest pain. 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 This morning patient was complaining of from chest pain about 5/10 in severity. Also she had some epigastric discomfort, feeling nausea but no vomiting and she had some hard bowel movements once yesterday. Echocardiogram showed ejection fraction of 50-55% with no wall motion abnormality significant valvular disease 09/30/2020 She continued to have chest pain, patient is kept on heparin drip per recommendation by special education teaching assistant will follow her very closely. Vitals and labs are stable including normal hemoglobin. Also patient looks anxious and she is on Ativan She has some nausea and constipation with symptomatic treatment is a provided Objective - Vital Signs Vital signs: Vital Signs Temp 98.5 F 09/30/20 08:00 Pulse 71 09/30/20 10:05 Resp 20 09/30/20 09:45 BP 139/83 09/30/20 10:05 Pulse Ox 98 09/30/20 10:05 Intake & Output 09/29/20 09/30/20 09/30/20 18:59 06:59 18:59 Intake Total 152.677 660 Output Total 0 Balance 152.677 660 Weight 90.5 kg Intake: Intake, IV Titration 62.677 Amount Heparin Sod,Pork in 0.45% 62.677 NaCl 25,000 unit In 0.45 % NaCl 1 250ml.bag @ 10. 204 UNITS/KG/HR 10 mls/hr IV .Q24H [facility] Rx#: [id number] Oral 90 660 Output: Urine 0 Other: Voiding Method Toilet Toilet # Voids 1 1 1 - Exam GENERAL: The patient is alert and oriented x3, not in any acute distress. Well developed, well nourished. HEENT: Pupils are round and equally reacting to light. EOMI. No scleral icterus. No conjunctival pallor. Normocephalic, atraumatic. No pharyngeal erythema. No thyromegaly. CARDIOVASCULAR: S1 and S2 present. No murmurs, rubs, or gallops. PULMONARY: Chest is clear to auscultation, no wheezing or crackles. ABDOMEN: Soft, nontender, nondistended, normoactive bowel sounds. No palpable organomegaly. MUSCULOSKELETAL: No joint swelling or deformity. EXTREMITIES: No cyanosis, clubbing, or pedal edema. NEUROLOGICAL: Gross neurological examination did not reveal any focal deficits. SKIN: No rashes. no petechiae. - Labs CBC & Chem 7: 09/30/20 06:53 09/30/20 06:53 Labs: Abnormal Lab Results - Last 24 Hours (Table) 09/29/20 09/29/20 09/30/20 Range/Units 16:44 22:30 06:53 APTT 35.9 H 62.7 H (22.0-30.0) sec Sodium 136 L (137-145) mmol/L Potassium 3.3 L (3.5-5.1) mmol/L Glucose 111 H (74-99) mg/dL Calcium 8.3 L (8.4-10.2) mg/dL 09/30/20 Range/Units 06:53 APTT 46.4 H (22.0-30.0) sec Sodium (137-145) mmol/L Potassium (3.5-5.1) mmol/L Glucose (74-99) mg/dL Calcium (8.4-10.2) mg/dL Assessment and Plan Assessment: Chest pain secondary to acute inferior STEMI secondary to spontaneous dissection of the right coronary artery History of asthma, not an active issue History of GERD, not an active issue Osteoarthritis Sleep apnea, not on CPAP Plan: This is a pleasant 54 years old female who presents with STEMI secondary to di ssection of the RCA. No intervention recommended by special education teaching assistant, otherwise the recommended maximum medical management. Heparin drip is her surgery today per Robb's team recommendation review of her ongoing chest pain. Continue with aspirin and Plavix as well. Also check abdominal x-ray. Continue with Zofran and stool laxative. Add Protonix for GI prophylaxis Labs and medication were reviewed.. Continue same treatment. Continue with symptomatic treatment. Resume home medication. Monitor lytes and vitals. DVT and GI prophylaxis. Further recommendationsas per clinical course of the patient DVT prophylaxis: heparin GI Prophylaxis: Ppi Prognosis is guarded
[2020-09-30] MEDS: ACETAMINOPHEN TAB 500 MG TAB PO PRN ×3 (12:40→23:53)
[2020-09-30] MEDS: DOCUSATE 100 MG CAP PO PRN (15:46)
[2020-09-30] MEDS: ATORVASTATIN 80 MG TAB PO SCH (20:08)
[2020-09-30] MEDS: traMADol 50 MG TAB PO PRN (21:45)
[2020-10-01] MEDS ORDERED: PANTOPRAZOLE 40 MG TABLET PO SCH (07:30)
[2020-10-01 07:52] VITALS: RESP 18
[2020-10-01 08:30] LABS: African American GFR (CKD) >90 (>60 ml/min/1.73 sqM); Anion Gap 9 mmol/L; Blood Urea Nitrogen 13 mg/dL (7-17); Calcium 8.6 mg/dL (8.4-10.2); Carbon Dioxide 24 mmol/L (22-30); Chloride 104 mmol/L (98-107); Glucose 108 mg/dL (74-99); Magnesium 1.9 mg/dL (1.6-2.3); Non-African American GFR(CKD) >90 (>60 ml/min/1.73 sqM); Potassium 3.4 mmol/L (3.5-5.1); Sodium 137 mmol/L (137-145)
[2020-10-01 08:50] LABS: Basophils % (A) 0 %; Eosinophils # (A) 0.3 k/uL (0-0.7); Eosinophils % (A) 3 %; HCT 43.6 % (34.0-46.0); Lymphocytes # (A) 0.9 k/uL (1.0-4.8); Lymphocytes % (A) 11 %; MCH 30.7 pg (25.0-35.0); MCHC 34.3 g/dL (31.0-37.0); MCV 89.6 fL (80.0-100.0); Mean Platelet Volume 7.4; Monocytes # (A) 0.6 k/uL (0-1.0); Monocytes % (A) 7 %; Neutrophils # (A) 6.6 k/uL (1.3-7.7); Neutrophils % (A) 76 %; Platelet Count 221 k/uL (150-450); RBC 4.87 m/uL (3.80-5.40); WBC 8.7 k/uL (3.8-10.6)
[2020-10-01] MEDS: ASPIRIN 81 MG PO SCH (08:55)
[2020-10-01] MEDS: LORazepam 0.5 MG TAB PO PRN (08:55)
[2020-10-01] MEDS: METOPROLOL SUCCINATE (ER) 25 MG TAB.ER.24H PO SCH (08:56)
[2020-10-01] MEDS: NITROGLYCERIN OINT 1 INCH/GM PACKET TOPICAL SCH (08:56)
[2020-10-01] MEDS: CLOPIDOGREL 75 MG TAB PO SCH (08:56)
[2020-10-01] MEDS: DOCUSATE 100 MG CAP PO PRN (09:00)
[2020-10-01] MEDS: HEPARIN SOD,PORK IN 0.45% NACL 25,000 UNIT in 0.45% NACL 1 250ML.BAG IV SCH (10:24)
--- NOTE | 2020-10-01 11:38 | P.PN ---
Subjective This is a pleasant 54 years old female with multiple medical problems including gastroesophageal reflux disease, asthma, memory impairment, osteoarthritis, sleep apnea on CPAP/BiPAP, migraine. History of kidney stone and diverticulitis. She is a patient of Dr. Rodriguez. Presents because of chest pain. 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 This morning patient was complaining of from chest pain about 5/10 in severity. Also she had some epigastric discomfort, feeling nausea but no vomiting and she had some hard bowel movements once yesterday. Echocardiogram showed ejection fraction of 50-55% with no wall motion abnormality significant valvular disease 09/30/2020 She continued to have chest pain, patient is kept on heparin drip per recommendation by padded products inspector trimmer will follow her very closely. Vitals and labs are stable including normal hemoglobin. Also patient looks anxious and she is on Ativan She has some nausea and constipation with symptomatic treatment is a provided 10/01/2020 Patient chest pain has stopped since last night, this morning she is with no chest pain or dyspnea. No nausea vomiting and she still have no bowel movement but she is on Colace and she does not need anymore therapy. Hemodynamically and labs looks stable. She remains on heparin drip Objective - Vital Signs Vital signs: Vital Signs Temp 97.7 F 10/01/20 07:51 Pulse 75 10/01/20 07:51 Resp 18 10/01/20 07:51 BP 128/84 10/01/20 07:51 Pulse Ox 96 10/01/20 07:51 Intake & Output 09/30/20 10/01/20 10/01/20 18:59 06:59 18:59 Intake Total 880 520 500 Output Total 300 Balance 880 520 200 Weight 91.3 kg Intake: IV 140 170 Sodium Chloride 0.9% 1, 140 170 000 ml @ 20 mls/hr IV . Q24H [facility] Rx#:[id number] Intake, IV Titration 80 20 Amount Heparin Sod,Pork in 0.45% 80 20 NaCl 25,000 unit In 0.45 % NaCl 1 250ml.bag @ 11. 05 UNITS/KG/HR 10 mls/hr IV .Q24H [facility] Rx#: [id number] Oral 660 350 480 Output: Urine 300 Other: Voiding Method Toilet # Voids 1 2 1 - Exam GENERAL: The patient is alert and oriented x3, not in any acute distress. Well developed, well nourished. HEENT: Pupils are round and equally reacting to light. EOMI. No scleral icterus. No conjunctival pallor. Normocephalic, atraumatic. No pharyngeal erythema. No thyromegaly. CARDIOVASCULAR: S1 and S2 present. No murmurs, rubs, or gallops. PULMONARY: Chest is clear to auscultation, no wheezing or crackles. ABDOMEN: Soft, nontender, nondistended, normoactive bowel sounds. No palpable organomegaly. MUSCULOSKELETAL: No joint swelling or deformity. EXTREMITIES: No cyanosis, clubbing, or pedal edema. NEUROLOGICAL: Gross neurological examination did not reveal any focal deficits. SKIN: No rashes. no petechiae. 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 No intervention recommended by padded products inspector trimmer, otherwise the recommended maximum medical management. Heparin drip is her surgery today per Robb's team recommendation review of her ongoing chest pain. Continue with aspirin and Plavix as well. Also check abdominal x-ray. Continue with Zofran and stool laxative. Add Protonix for GI prophylaxis Labs and medication were reviewed.. Continue same treatment. Continue with symptomatic treatment. Resume home medication. Monitor lytes and vitals. DVT and GI prophylaxis. Further recommendationsas per clinical course of the patient DVT prophylaxis: heparin GI Prophylaxis: Ppi Prognosis is guarded
--- NOTE | 2020-10-01 12:11 | P.PN ---
Subjective Progress Note Date: 10/01/20 CHIEF COMPLAINT: Chest pain HISTORY OF PRESENT ILLNESS: 09/27/2020 This is a 54 year old female with a past medical history significant for asthma, GERD, osteoarthritis, sleep apnea without CPAP use, and migraines. Patient does not follow with a tennis camp instructor. We have been asked to see the patient in consultation for STEMI. Patient presented via EMS. Patient examined at the bedside in the emergency room. Patient reports she began having chest pain about an hour prior to coming to the hospital. She describes the pain as an extreme pressure. She reports the pain went into her arm as well. She reports shortness of breath, nausea without vomiting, and also diaphoresis. 09/29/2020 Patient has been transferred out of the ICU to the cardiac stepdown unit. She is status post cardiac catheterization revealing spontaneous dissection involving the right coronary artery. She remains on IV heparin. Patient was complaining of a significant headache this morning along with nausea and vomiting overnight. Her IV nitro was discontinued. Shortly after, patient began having some chest discomfort along with some anxiety. Echocardiogram revealed ejection fraction 50-55% and mild tricuspid regurgitation 09/30/2020 Patient examined this morning the bedside. Patient denied any chest pain or pressure. Denies shortness of breath. She complained of some abdominal pain. She underwent KUB x-ray yesterday which was unremarkable. The patient was transitioned to Nitropaste yesterday. She denies having a headache. She remains on IV heparin. Orders were placed to discontinue the IV heparin this morning and transition the patient over to oral nitrates an attempt to discharge the patient home this afternoon. However shortly after IV heparin was discon tinued the patient began complaining of chest pain 10 out of 10. EKG was obtained and reviewed by Dr. Love. IV heparin was reordered along with Nitropaste. 10/01/2020 Patient examined this morning at the bedside. Patient states she is feeling much better today. She denies any chest pain or pressure. She denies shortness of breath. She states she has been up ambulating to the bathroom. Vital signs are stable. She is hoping to be discharged home today. PHYSICAL EXAM: VITAL SIGNS: Reviewed. GENERAL: Well-developed in mild acute distress. HEENT: Head is normocephalic. Pupils are equal, round. Sclerae anicteric. Mucous membranes of the mouth are moist. Neck supple. No JVD or thyromegaly LUNGS: Respirations even and unlabored. Lungs essentially clear to auscultation bilaterally. HEART: Regular rate and rhythm. S1 and S2 heard. EXTREMITIES: Normal range of motion. No clubbing or cyanosis. Peripheral pulses intact. No lower extremity edema. Right groin cath site soft with no hematoma noted. Pulse present. ASSESSMENT: Acute inferior ST elevated myocardial infarction secondary to spontaneous dissection of right coronary artery Asthma GERD Sleep apnea, no CPAP use Osteoarthritis Hypokalemia PLAN: Discontinue IV heparin Discontinue Nitropaste Begin Imdur 30 mg daily Continue ativan for anxiety Increase activity and ambulation If patient does not experience any further episodes of chest pain, she may be discharged home today from a cardiac standpoint. Patient to follow up outpatient with Dr. Love. Nurse practitioner note has been reviewed by physician. Signing provider agrees with the documented findings, assessment, and plan of care. Objective - Vital Signs Vital signs: Vital Signs Temp 97.7 F 10/01/20 07:51 Pulse 75 10/01/20 08:00 Resp 18 10/01/20 08:00 BP 128/84 10/01/20 07:51 Pulse Ox 96 10/01/20 07:51 Intake & Output 09/30/20 10/01/20 10/01/20 18:59 06:59 18:59 Intake Total 880 520 500 Output Total 600 Balance 880 520 -100 Weight 91.3 kg Intake: IV 140 170 Sodium Chloride 0.9% 1, 140 170 000 ml @ 20 mls/hr IV . Q24H [facility] Rx#:[id number] Intake, IV Titration 80 20 Amount Heparin Sod,Pork in 0.45% 80 20 NaCl 25,000 unit In 0.45 % NaCl 1 250ml.bag @ 11. 05 UNITS/KG/HR 10 mls/hr IV .Q24H [facility] Rx#: [id number] Oral 660 350 480 Output: Urine 600 Other: Voiding Method Toilet Toilet # Voids 1 2 1 - Labs CBC & Chem 7: 10/01/20 07:36 10/01/20 07:36 Labs: Abnormal Lab Results - Last 24 Hours (Table) 09/30/20 09/30/20 10/01/20 Range/Units 18:29 18:33 07:36 Lymphocytes # 0.9 L (1.0-4.8) k/uL APTT 45.8 H (22.0-30.0) sec Potassium 3.3 L (3.5-5.1) mmol/L Glucose (74-99) mg/dL 10/01/20 10/01/20 Range/Units 07:36 07:36 Lymphocytes # (1.0-4.8) k/uL APTT 45.4 H (22.0-30.0) sec Potassium 3.4 L (3.5-5.1) mmol/L Glucose 108 H (74-99) mg/dL
[2020-10-01 12:12] VITALS: BP 124/75; PULSE 79; TEMP 97.9
[2020-10-01] MEDS ORDERED: ISOSORBIDE MONONITRATE ER 30 MG TAB.ER.24H PO SCH (12:15)
[2020-10-01] MEDS ORDERED: MAGNESIUM SULFATE-D5W PMX 1 GM in DEXTROSE/WATER 1 100ML.BAG IVPB ONE (13:43)
[2020-10-01] MEDS: POTASSIUM CHLORIDE ER 20 MEQ TAB.ER PO STA ×2 (14:13→15:32)
[2020-10-01] MEDS ORDERED: HEPARIN SODIUM,PORCINE 5,000 UNIT/ML 1 ML VIAL SQ SCH (16:00)
--- NOTE | 2020-10-01 22:57 | P.DS ---
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 Patient is chest pain-free upon discharge and dictated by avionics systems technician History of asthma, not an active issue History of GERD, not an active issue Osteoarthritis Sleep apnea, not on CPAP Hospital course: This is a pleasant 54 years old female with multiple medical problems including gastroesophageal reflux disease, asthma, memory impairment, osteoarthritis, sleep apnea on CPAP/BiPAP, migraine. History of kidney stone and diverticulitis. She is a patient of Dr. Rodriguez. Presents because of chest pain. 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 Patient kept on heparin drip for 2 days because she had persistent chest pain, however today and since last night her chest pain has resolved and other symptoms, she is chest pain-free, this morning her heparin drip was stopped. Architectural Intern instructed patient to remove the hallway and with exertion she remained asymptomatic with no chest pain. Eventually this afternoon avionics systems technician cleared her for discharge on oral medication while her heparin drip remains stopped. Echocardiogram showed ejection fraction of 50-55% with no wall motion abnormality significant valvular disease On the day of discharge patient denies chest pain, no dyspnea, no change in urine or bowel habits. No abdominal pain. No fever. Patient agrees to go home today Patient was cleared for discharge. Patient will be discharged upon recommendation of avionics systems technician with aspirin, Plavix, Protonix, metoprolol, Imdur and Lipitor Problems and management plan were discussed with the patient and he verbalized understanding and acceptance Patient was found stable and can be discharged home in guarded prognosis however she needs follow-up as an outpatient. Patient was instructed to follow up with PCP Dr. Rodriguez within one week and patient agrees. Also patient was instructed to follow up with her avionics systems technician Dr. Love in one week and she agrees to call and make her own appointment as today is weakened Gen: patient is a AAOx3, no distress CVS: S1-S2, RRR, no murmur Lungs: B/L CTA, no wheezing Abdomen: soft, no distention, no tenderness, positive bowel sounds Extremity: no leg edema or induration Time spent more than 35 minutes Patient Condition at Discharge: Serious Plan - Discharge Summary New Discharge Prescriptions: New Aspirin 81 mg PO DAILY #30 chew Docusate [Colace] 100 mg PO BID PRN #6 cap PRN Reason: Constipation Isosorbide Mononitrate ER [Imdur] 30 mg PO DAILY #30 tab.er.24h Atorvastatin [Lipitor] 80 mg PO HS #30 tab Clopidogrel [Plavix] 75 mg PO DAILY #30 tab Pantoprazole [Protonix] 40 mg PO AC-BRKFST #30 tablet. Metoprolol Succinate (ER) [Toprol XL] 25 mg PO DAILY #30 tab.er.24h Acetaminophen Tab [Tylenol] 1,000 mg PO Q6HR PRN tab PRN Reason: Fever And/ Or Pain Continue LORazepam [Ativan] 0.5 mg PO TID PRN PRN Reason: Anxiety Dicyclomine [Bentyl] 20 mg PO TID Mometasone/Formoterol [Dulera 200 Mcg-5 Mcg Inhaler] 200 mcg INHALATION BID Soy Isofla/Blk Cohosh/Mag Bark [Estroven 155 mg Capsule] 155 mg PO DAILY Discharge Medication List LORazepam [Ativan] 0.5 mg PO TID PRN 08/06/19 [History] Dicyclomine [Bentyl] 20 mg PO TID 09/27/20 [History] Mometasone/Formoterol [Dulera 200 Mcg-5 Mcg Inhaler] 200 mcg INHALATION BID 09/28/20 [History] Soy Isofla/Blk Cohosh/Mag Bark [Estroven 155 mg Capsule] 155 mg PO DAILY 09/28/20 [History] Acetaminophen Tab [Tylenol] 1,000 mg PO Q6HR PRN tab 10/01/20 [Rx] Aspirin 81 mg PO DAILY #30 chew 10/01/20 [Rx] Atorvastatin [Lipitor] 80 mg PO HS #30 tab 10/01/20 [Rx] Clopidogrel [Plavix] 75 mg PO DAILY #30 tab 10/01/20 [Rx] Docusate [Colace] 100 mg PO BID PRN #6 cap 10/01/20 [Rx] Isosorbide Mononitrate ER [Imdur] 30 mg PO DAILY #30 tab.er.24h 10/01/20 [Rx] Metoprolol Succinate (ER) [Toprol XL] 25 mg PO DAILY #30 tab.er.24h 10/01/20 [Rx] Pantoprazole [Protonix] 40 mg PO AC-BRKFST #30 tablet.dr 10/01/20 [Rx] Follow up Appointment(s)/Referral(s): Héctor Rodriguez MD [Primary Care Provider] - 1-2 days Travis Love MD [STAFF PHYSICIAN] - 1 Week Patient Instructions/Handouts: Heart Attack (DC), Acute Abdominal Pain (DC) Activity/Diet/Wound Care/Special Instructions: heart healthy diet activity is restricted till you see your doctor Discharge Disposition: HOME SELF-CARE
== END 2020-10-01 16:58 | disposition home or self-care (01) | DRG 280 ==
LOC: EC 11:24 → 2SICU 11:29 → 3SCARD 09-28 15:06
PROVIDERS: ADMIT Family Medicine; ATTEND Family Medicine
PROC: B2111ZZ Fluoroscopy of Multiple Coronary Arteries using Low Osmolar Contrast (ICD-10-PCS; principal; 2020-09-27 12:50)
PROC: 4A023N7 Measurement of Cardiac Sampling and Pressure, Left Heart, Percutaneous Approach (ICD-10-PCS; principal; 2020-09-27 12:50)
DX: I21.19 ST elevation (STEMI) myocardial infarction involving other coronary artery of inferior wall (principal); I25.42 Coronary artery dissection; J45.909 Unspecified asthma, uncomplicated; K21.9 Gastro-esophageal reflux disease without esophagitis; G43.909 Migraine, unspecified, not intractable, without status migrainosus; R41.3 Other amnesia; H40.9 Unspecified glaucoma; G47.30 Sleep apnea, unspecified; J30.2 Other seasonal allergic rhinitis; L30.9 Dermatitis, unspecified; M19.90 Unspecified osteoarthritis, unspecified site; F41.9 Anxiety disorder, unspecified; E87.6 Hypokalemia; K59.00 Constipation, unspecified; Z90.710 Acquired absence of both cervix and uterus; Z98.51 Tubal ligation status; Z98.890 Other specified postprocedural states; Z88.1 Allergy status to other antibiotic agents; Z88.5 Allergy status to narcotic agent; Z88.0 Allergy status to penicillin; Z88.8 Allergy status to other drugs, medicaments and biological substances; Z91.018 Allergy to other foods; Z79.899 Other long term (current) drug therapy; Z79.51 Long term (current) use of inhaled steroids; Z86.010 Personal history of colon polyps; Z87.820 Personal history of traumatic brain injury; Z87.442 Personal history of urinary calculi; Z86.19 Personal history of other infectious and parasitic diseases; Z80.9 Family history of malignant neoplasm, unspecified; Z83.6 Family history of other diseases of the respiratory system; Z90.711 Acquired absence of uterus with remaining cervical stump; Z90.49 Acquired absence of other specified parts of digestive tract; Z90.89 Acquired absence of other organs
CPT/HCPCS: 36415; 71045; 74018; 80048; 80053; 80061; 83735; 84132; 84484; 85025; 85610; 85730; 93005; 93306; 93458; 96374; 96375; 99285